=== PATIENT | female | born 1995 | race Caucasian/White ===

== ENCOUNTER → 2016-11-05 07:54 | Day surgery (SDC) | payer OTHER, MEDICAID ==
[~2016-11-05 07:54] MED LIST: Buffered Lidocaine 1% SYR 3ML* 3 ML/SYR SYRINGE INTRADERM ONE; Bupivacaine 0.5% W/EPI SDV* 30 ML VIAL ONE; Dexamethasone IV* 4 MG/ML 1 ML (4 MG) ONE; Famotidine IV* 10 MG/ML 2 ML (20 mg) IV ONE; Famotidine IV* 10 MG/ML 2 ML (20 mg) ONE; KETAMINE HCL* 50 MG/ML 10 ML VIAL ONE; Ketorolac INJ* 30 MG/ML 1 ML VIAL ONE; Lidocaine 1% INJ* 10 MG/ML 30 ML SDV ONE; Lidocaine 2% PF * 5 ML VIAL ONE; Midazolam* 1 MG/ML 5 ML VIAL (5 MG) ONE; Morphine INJ* 2 MG/ML 1 ML CARPUJECT IV PRN; Ondansetron INJ* 2 MG/ML VIAL ONE; PROCHLORPERAZINE INJ 5 MG/ML 2 ML VIAL IV PRN; PROCHLORPERAZINE INJ 5 MG/ML 2 ML VIAL ONE; Propofol* 10 MG/ML 20 ML BTL IV PUSH ONE; Vancomycin(*) 1,000 MG in NS 0.9% 250 ML* 250 ML IVPB ONE; fentaNYL* 50 MCG/ML 2 ML VIAL (100 MCG VIAL) IV PRN; fentaNYL* 50 MCG/ML 2 ML VIAL (100 MCG VIAL) ONE; oxyCODONE/Acetamin 5/325 MG* TAB PO PRN
[2016-11-05 08:40] LABS: Manual Entry Verification AS; UR Preg Internal Control QC Line Present; UR Preg Kit Lot# 6060104
[2016-11-05 12:07] VITALS: BP 116/60
--- NOTE | 2016-11-20 16:54 | OP ---
DATE OF PROCEDURE: 11/05/16 - SDS DATE OF : 93 SURGEON: Jason Garsia MD DESIGN ENGINEER PRODUCTS: Megha Ackerman NP ANESTHESIOLOGIST: Dr. Krishna. ANESTHESIA: Local MAC anesthesia. PRE-OP DIAGNOSIS: Umbilical hernia. POST-OP DIAGNOSIS: Umbilical hernia. OPERATIVE PROCEDURE: Open umbilical hernia repair. ESTIMATED BLOOD LOSS: Minimal. SPECIMEN: None. FLUIDS: Minimal crystalloid fluid given. DRAINS: None. DESCRIPTION OF PROCEDURE: The patient was identified in the preoperative area and marked, brought to the OR and placed on the operating table in the supine position. Preoperative antibiotics were given. Sequential devices were placed in bilateral lower extremities. Gentle sedation was given. The patient's abdomen was prepped and draped in a standard surgical fashion and a time-out was performed. An infraumbilical incision was made. This was deepened down to the anterior fascia inferiorly. A window was made around the umbilical skin. A [place] was placed around this and sharp dissection was utilized to free the umbilical skin from the defect. Defect appeared approximately 1 cm and the decision was made for primary closure. A #1 Surgipro sutures were utilized and a [id number] suture was utilized to close the defect. Irrigation was used and the umbilical skin was then tacked down with 2-0 Polysorb followed by closure of the incision with 3-0 Polysorb followed by 4-0 Monocryl subcuticular sutures. Steri-Strips and sterile dressing were applied. The patient tolerated the procedure well. He was awoken up in the OR and transferred to the PACU in stable condition. CC: [facility]; Nica Bravo NP* [id number]/[facility] #: [id number] MTDD
== END | disposition home or self-care (01) ==
LOC: OR 07:54
PROVIDERS: ATTEND Surgery
DX: K42.9 Umbilical hernia without obstruction or gangrene (principal); J45.909 Unspecified asthma, uncomplicated; F31.9 Bipolar disorder, unspecified; Z87.891 Personal history of nicotine dependence
CPT/HCPCS: 81025; J0780; J1100; J1885; J2250; J2405; J2704; J3010; J3370

== ENCOUNTER 2017-01-30 17:31 | Emergency (ER) | payer OTHER, MEDICAID ==
[2017-01-30 17:38] VITALS: BP 118/79
[2017-01-30] MEDS ORDERED: Ketorolac INJ* 60 MG/2 ML VIAL IM ONE (20:20)
[2017-01-30 20:58] LABS: Hematocrit 41 % (35-47); Hemoglobin 14.1 g/dl (12.0-16.0); Mean Corpuscular HGB Conc 35 g/dl (31-36); Mean Corpuscular Hemoglobin 28 pg (27-31); Mean Corpuscular Volume 82 fL (80-97); Mean Platelet Volume 10 um3 (7.4-10.4); Red Blood Count 4.99 10^6/ul (4.0-5.4); Red Cell Distribution Width 14 % (10.5-15); White Blood Count 10.7 10^3/ul (3.5-10.8)
[2017-01-30 21:02] LABS: Urine Bacteria Absent (Absent); Urine Bilirubin Negative (Negative); Urine Glucose Negative (Negative); Urine Nitrite Negative (Negative)
[2017-01-30 21:21] LABS: ALT 17 U/L (7-52); AST 16 U/L (13-39); Albumin 4.1 g/dL (3.2-5.2); Alkaline Phosphatase 65 U/L (34-104); Anion Gap 8 mmol/L (2-11); BUN/Creatinine Ratio 11.7 (8-20); Blood Urea Nitrogen 9 mg/dL (6-24); C Reactive Protein 145.32 mg/L (< 5.00); CO2 Carbon Dioxide 22 mmol/L (22-32); Calcium 8.8 mg/dL (8.6-10.3); Chloride 106 mmol/L (101-111); EGFR African American 119.5 (>60); EGFR Non-African American 92.9 (>60); Glucose 123 mg/dL (70-100); Sodium 136 mmol/L (133-145); Total Protein 7.1 g/dL (6.4-8.9)
--- NOTE | 2017-01-30 21:41 | RAD ---
Indication: Right adnexal pain. Real-time sonography of the pelvis was performed utilizing endovaginal technique. The uterus measures 7.6 x 4.0 x 4.8 cm. Endometrial echo measures 4.4 mm. Right ovary measures 3.2 x 2.2 x 3.1 cm. Left ovary measures 3.7 x 1.8 x 2.3 cm. No adnexal masses are noted. IMPRESSION: No adnexal masses are identified.
[2017-01-30] MEDS ORDERED: Sulfamethox/Trimethoprim DS 800/160* TAB PO ONE (22:01)
[2017-01-30] MEDS ORDERED: Potassium Chlor TAB* 20 MEQ TAB.ER PO ONE (22:05)
--- NOTE | 2017-01-31 01:33 | ED ---
Nick Cuadra Alok, scribed for Roland Barboza MD on 01/30/17 at 2211 . HPI Febrile Illness - HPI Summary HPI Summary: 21F presents to the ED for a sore throat, nasal congestion, occipital ALEXANDER, and generalized myalgia since yesterday. Pt states her pain is worst behind her ears at a 8/10. Pt has tried advil, tylenol, and ibuprofen for relief with no effect. Pt also notes suprapubic abd pain and dypnea due to myaliga. Pt denies cough or rhinorrhea. Pt denies hematuria, dysuria, or changes in urinary frequency. Pt notes h/o migraine and previous migraine medication she no longer takes. Pt denies flu shot taken this year. Pt denies h/o ovarian cysts. Pt takes Neproxin. Pt takes Depo Shot control and does not get regular mensural periods. Pt takes prescription Neproxin. Pt notes allergies to clindamycin, amoxicillin, and penicillin. - History of Current Complaint Chief Complaint: EDUpperRespComplaint Hx Obtained From: Patient Onset/Duration: Started Days Ago, Atraumatic, Still Present Timing: Constant Initial Severity: Moderate Current Severity: Moderate Pain Intensity: 8 Pain Scale Used: 0-10 Numeric Alleviating Factors: Nothing Associated Signs and Symptoms: Headache, Myalgia, Sore Throat, Other: - nasal congestion - Allergy/Home Medications Allergies/Adverse Reactions: Allergies Allergy/AdvReac Type Severity Reaction Status Date / Time Amoxicillin Allergy Severe Hives Verified 11/05/16 08:32 Lamotrigine [From Lamictal] Allergy Intermediate Rash Verified 11/05/16 08:32 Adhesive Tape [Paper Tape] Allergy Rash And Verified 11/05/16 08:32 Itching Doxycycline Allergy ITCHY HIVES Verified 11/05/16 08:32 Penicillins Allergy Hives Verified 11/05/16 08:32 Trazodone AdvReac Severe Agitation Verified 11/05/16 08:32 ANTIBIOTIC THAT STARTS WITH C Allergy Severe Hives Uncoded 11/05/16 08:32 PMH/Surg Hx/FS Hx/Imm Hx Endocrine/Hematology History: Denies: Hx Diabetes, Hx Thyroid Disease Cardiovascular History: Denies: Hx Congestive Heart Failure, Hx Hypertension Respiratory History: Reports: Hx Asthma - INHALERS Denies: Hx Chronic Obstructive Pulmonary Disease (COPD) GI History: Reports: Hx Gastroesophageal Reflux Disease - CONTROL WITH MEDS Denies: Hx Ulcer History: Reports: Other Problems/Disorders - FREQUENT YEAST INFECTION - NONE NOW Denies: Hx Renal Disease Sensory History: Denies: Hx Contacts or Glasses, Hx Hearing Aid Opthamlomology History: Denies: Hx Contacts or Glasses Neurological History: Reports: Hx Migraine - 4 TIMES A DAY, Other Neuro Impairments/Disorders - MOOD SWINGS, ADHD, INSOMNIA Psychiatric History: Reports: Hx Anxiety, Hx Depression, Other Psychiatric Issues/Disorders - ADHD,PTSD - Surgical History Surgery Procedure, Year, and Place: 01/2000 BILATERAL MYRINGOTOMY WITH [place] [facility] [place]. [place]2000 ADENOIDECTOMY AND [place]IL[place]OMY, [facility] [place] Hx Anesthesia Reactions: Yes - TOOK LONGER TO WAKE UP Infectious Disease History: No Infectious Disease History: Denies: Hx Hepatitis, Hx Human Immunodeficiency Virus (HIV), Traveled Outside the in Last 30 Days - Family History Known Family History: Positive: Cardiac Disease, Hypertension - Social History Occupation: Unemployed Lives: With Family Alcohol Use: None Hx Substance Use: No Substance Use Type: Reports: None Hx Tobacco Use: Yes Smoking Status (MU): Former Smoker Type: Cigarettes Amount Used/How Often: 1 PPD Length of Time of Smoking/Using Tobacco: 6 YEARS Have You Smoked in the Last Year: No Review of Systems Negative: Fever, Chills Negative: Erythema Positive: Sore Throat, Other - nasal congestion. Negative: Nasal Discharge Negative: Shortness Of Breath, Cough Positive: Abdominal Pain. Negative: Vomiting, Nausea Negative: dysuria, hematuria Positive: Myalgia. Negative: Edema Negative: Rash Neurological: Other - Negative: Dizziness Positive: Headache All Other Systems Reviewed And Are Negative: Yes Physical Exam - Summary Physical Exam Summary: Constitutional: Well-developed, Well-nourished, Alert. (-) Distressed Skin: Warm, Dry HENT: Normocephalic; Atraumatic Eyes: Conjunctiva normal Neck: Musculoskeletal ROM normal neck. (-) JVD, (-) Stridor, (-) Tracheal deviation Cardio: Rhythm regular, rate normal, Heart sounds normal; Intact distal pulses; The pedal pulses are 2+ and symmetric. Radial pulses are 2+ and symmetric. (-) Murmur Pulmonary/Chest wall: Effort normal. (-) Respiratory distress, (-) Wheezes, (-) Rales Abd: Soft, suprapubic tenderness Musculoskeletal: Bilateral CVA tenderness Lymph: (-) Cervical adenopathy Neuro: Alert, Oriented x3 Psych: Mood and affect Normal Triage Information Reviewed: Yes Vital Signs On Initial Exam: Initial Vitals Temp Pulse Resp BP Pulse Ox 98.5 F 103 20 118/79 98 01/30/17 17:37 01/30/17 17:37 01/30/17 17:37 01/30/17 17:37 01/30/17 17:37 Vital Signs Reviewed: Yes - Quinn Coma Scale Coma Scale Total: 15 Diagnostics - Vital Signs Vital Signs Temp Pulse Resp BP Pulse Ox 01/30/17 17:38 98.5 F 101 20 118/79 100 01/30/17 17:37 98.5 F 103 20 118/79 98 - Laboratory Lab Results: Lab Results 01/30/17 01/30/17 01/30/17 Range/Units 20:50 20:50 20:50 WBC 10.7 (3.5-10.8) 10^3/ul RBC 4.99 (4.0-5.4) 10^6/ul Hgb 14.1 (12.0-16.0) g/dl Hct 41 (35-47) % MCV 82 (80-97) fL MCH 28 (27-31) pg MCHC 35 (31-36) g/dl RDW 14 (10.5-15) % Plt Count 144 L (150-450) 10^3/ul MPV 10 (7.4-10.4) um3 Sodium 136 (133-145) mmol/L Potassium 3.0 L (3.5-5.0) mmol/L Chloride 106 (101-111) mmol/L Carbon Dioxide 22 (22-32) mmol/L Anion Gap 8 (2-11) mmol/L BUN 9 (6-24) mg/dL Creatinine 0.77 (0.51-0.95) mg/dL Est GFR ( Amer) 119.5 (>60) Est GFR (Non-Af Amer) 92.9 (>60) BUN/Creatinine Ratio 11.7 (8-20) Glucose 123 H (70-100) mg/dL Calcium 8.8 (8.6-10.3) mg/dL Total Bilirubin 0.70 (0.2-1.0) mg/dL AST 16 (13-39) U/L ALT 17 (7-52) U/L Alkaline Phosphatase 65 (34-104) U/L C-Reactive Protein 145.32 H (< 5.00) mg/L Total Protein 7.1 (6.4-8.9) g/dL Albumin 4.1 (3.2-5.2) g/dL Globulin 3.0 (2-4) g/dL Albumin/Globulin Ratio 1.4 (1-3) Beta HCG, Quant < 0.60 mIU/mL Urine Color Yellow Urine Appearance Clear Urine pH 6.0 (5-9) Ur Specific [place] 1.026 (1.010-1.030) Urine Protein 1+(30 mg/dl) H (Negative) Urine Ketones Trace H (Negative) Urine Blood Negative (Negative) Urine Nitrate Negative (Negative) Urine Bilirubin Negative (Negative) Urine Urobilinogen Negative (Negative) Ur Leukocyte Esterase 3+ H (Negative) Urine WBC (Auto) 2+(11-20/hpf) H (Absent) Urine RBC (Auto) 3+(>10/hpf) H (Absent) Ur Squamous Epith Cells Present H (Absent) Urine Bacteria Absent (Absent) Urine Glucose Negative (Negative) Result Diagrams: 01/30/17 20:50 01/30/17 20:50 Lab Statement: Any lab studies that have been ordered have been reviewed, and results considered in the medical decision making process. - Additional Comments Diagnostic Additional Comments: Transvaginal US - IMPRESSION: No adnexal masses are identified. Course/Dx - Course Course Of Treatment: [facility] pharmacy in [place] was not in system. She was transported to [place] with her boyfriend - Diagnoses Provider Diagnoses: Hypokalemia, CVA tenderness, Suprapubic tenderness Discharge - Discharge Plan Condition: Stable Disposition: HOME Prescriptions: Sulfamethox/Trimethoprim DS* [Bactrim DS 800/160 TAB*] 1 tab PO BID #28 tab traMADol TAB* [Ultram*] 25 mg PO Q6HR PRN #12 tab MDD 4 PRN Reason: Pain - Moderate To Severe Patient Education Materials: Hypokalemia (ED) Referrals: Nica Bravo NP [Primary Care Provider] - Additional Instructions: We recommend eating bananas. Your script can be picked up at [[facility] [address], [place] [address]. Please show them the papers attached.] The documentation as recorded by the jaquiibNick frederick Alok accurately reflects the service I personally performed and the decisions made by me, Roland Barboza MD.
== END 2017-01-30 22:30 | disposition home or self-care (01) ==
LOC: ED 17:31
DX: J02.9 Acute pharyngitis, unspecified (principal); R10.819 Abdominal tenderness, unspecified site; R10.9 Unspecified abdominal pain; R09.81 Nasal congestion; R51 Headache; M79.1 Myalgia; Z87.891 Personal history of nicotine dependence; E87.6 Hypokalemia
CPT/HCPCS: 36415; 76830; 80053; 81003; 81015; 84702; 85027; 86140; 87086; 96372; 99282; A9270-GY; J1885

== ENCOUNTER 2017-02-11 13:23 | Emergency (ER) | payer OTHER, MEDICAID ==
[2017-02-11 15:22] VITALS: BP 124/67
--- NOTE | 2017-02-11 16:15 | UC ---
Throat Pain/Nasal Amilcar HPI - HPI Summary HPI Summary: 21 female presents with complaints of ear pain, coughing, nasal congestion, sinus congestion and sore throat that has been ongoing for the past 4 days. Patient was seen at her PCP yesterday who diagnosed her with rhinosinusitis. She was given naproxen that she was only able to take for 1 day until her throat was so sore. Was tested for strep yesterday and it was negative. States she has been having fever/chill from 99-102F over the past 4 days. She has also had loss of appetite and unable to eat/drink a lot due to the sore throat. Has also tried Mucinex without relief. Denies PMHx besides asthma. Patient gets sinus infections often. - History of Current Complaint Chief Complaint: UCRespiratory Stated Complaint: CONGESTED,EAR PAIN,CANNOT EAT Time Seen by Provider: 02/11/17 15:54 Hx Obtained From: Patient Hx Last Menstrual Period: 7 mo ago, depo shot ?: No Onset/Duration: Sudden Onset, Lasting Days, Worse Since Severity: Moderate Pain Intensity: 9 Pain Scale Used: 0-10 Numeric Cough: Nonproductive Associated Signs & Symptoms: Positive: Dysphagia, Sinus Discomfort, Nasal Discharge, Fever - Allergies/Home Medications Allergies/Adverse Reactions: Allergies Allergy/AdvReac Type Severity Reaction Status Date / Time Amoxicillin Allergy Severe Hives Verified 02/11/17 15:15 Lamotrigine [From Lamictal] Allergy Intermediate Rash Verified 02/11/17 15:15 Adhesive Tape [Paper Tape] Allergy Rash And Verified 02/11/17 15:15 Itching Doxycycline Allergy ITCHY HIVES Verified 02/11/17 15:15 Penicillins Allergy Hives Verified 02/11/17 15:15 Trazodone AdvReac Severe Agitation Verified 02/11/17 15:15 ANTIBIOTIC THAT STARTS WITH C Allergy Severe Hives Uncoded 02/11/17 15:15 PMH/Surg Hx/FS Hx/Imm Hx Respiratory History: Asthma - Surgical History Surgical History: Yes Surgery Procedure, Year, and Place: 01/2000 BILATERAL MYRINGOTOMY WITH TUBE INSERTION, [facility] [place]. 04/2000 ADENOIDECTOMY AND TONSILLECTOMY, [facility] [place]. umbilical hernia repair - Family History Known Family History: Positive: Cardiac Disease, Hypertension - Social History Alcohol Use: None Substance Use Type: None Smoking Status (MU): Former Smoker Type: Cigarettes Amount Used/How Often: 1 PPD Length of Time of Smoking/Using Tobacco: 6 YEARS Have You Smoked in the Last Year: No When Did the Patient Quit Smoking/Using Tobacco: 2011 - Immunization History Vaccination Up to Date: Yes Review of Systems Constitutional: Fever, Chills, Other - "unable to sleep" Skin: Negative Eyes: Negative ENT: Sore Throat, Ear Ache, Nasal Discharge Respiratory: Cough Cardiovascular: Negative Gastrointestinal: Other - loss of appetite Motor: Negative Musculoskeletal: Myalgia Neurological: Headache All Other Systems Reviewed And Are Negative: Yes Physical Exam Triage Information Reviewed: Yes Appearance: No Pain Distress, Well-Nourished, Ill-Appearing - tearful laying on stretcher covered in blanket. sounds congested Vital Signs: Initial Vital Signs Temp 99.2 F 02/11/17 15:17 Pulse 89 02/11/17 15:17 Resp 16 02/11/17 15:17 BP 124/67 02/11/17 15:17 Pulse Ox 97 02/11/17 15:17 Vital Signs Reviewed: Yes Eyes: Positive: Conjunctiva Clear - erythematous from crying ENT: Positive: Hearing grossly normal, Pharyngeal erythema, Nasal congestion, Nasal drainage, TMs normal, Other: - no sign of peritonsillar abscess. Negative : TM bulging, TM dull, TM red, Tonsillar swelling, Tonsillar exudate, Trismus, Muffled/hoarse voice Dental: Positive: Percussion Tenderness @ - maxillary and frontal b/l, Cervical Lymphadenopathy Neck exam: Normal Neck: Positive: Supple, Nontender Respiratory: Positive: Chest non-tender, Lungs clear, Normal breath sounds, No respiratory distress, No accessory muscle use. Negative: Respiratory distress, Decreased breath sounds, Crackles, Rhonchi, Stridor, Wheezing Cardiovascular: Positive: RRR, No Murmur, Pulses Normal Abdomen Description: Positive: Nontender, Soft. Negative: CVA Tenderness (R), CVA Tenderness (L), Distended, Guarding, Peritoneal Signs Bowel Sounds: Positive: Present Musculoskeletal: Positive: Strength Intact, ROM Intact Neurological: Positive: Alert Skin Exam: Normal Throat Pain/Nasal Course/Dx - Course Course Of Treatment: patient educated on viral versus bacterial infections. educated on mono. appears to be suffering from possible acute sinusitis. due to second visit and PE findings will be treated for sinusitis with a z pack and flonase. also recommended to continue naproxen, mucinex and use chloraseptic spray to help soothe throat. Tested for strep yesterday and was negative. hot shower, salt water gargles. follow up pcp, told to get tested for mono at next pcp visit, patient deferred testing at this time. aware of worsening signs and symptoms. - Differential Dx/Diagnosis Differential Diagnosis/HQI/PQRI: Influenza, Mononucleosis, Otitis Media, Pharyngitis, Sinusitis, Tonsillitis, URI Provider Diagnoses: acute sinusitis Discharge - Discharge Plan Condition: Stable Disposition: HOME Prescriptions: Azithromycin TAB* [Zithromax TAB (Z-ZAID) 250 mg #6 tabs] 2 tab PO .TODAY, THEN 1 DAILY #1 zaid Fluticasone NASAL SPRAY 50MCG* [Flonase NASAL SPRAY 50MCG*] 2 spray BOTH NARES DAILY #1 btl Patient Education Materials: Sinusitis (ED) Referrals: Nica Bravo [facility] [Primary Care Provider] - Additional Instructions: Take prescribed antibiotic as directed until entire dose is finished. Use nasal spray at bedtime. Recommend using chloraseptic spray to help numb throat that is sold over the counter. Continue taking naproxen for headache and ache and mucinex as needed. Take hot showers and use humidifier in bedroom at night if able. Gargle with salt water a few times daily. Drink plenty of fluids and get plenty of rest. Xyzal is a good over the counter medication to help keep congestion under control and take daily when experiencing symptoms. Follow up with PCP. If symptoms worsen or do not improve please seek medical attention.
== END 2017-02-11 16:20 | disposition home or self-care (01) ==
LOC: UCEAST 13:23
DX: J01.90 Acute sinusitis, unspecified (principal); F17.210 Nicotine dependence, cigarettes, uncomplicated
CPT/HCPCS: 99212; G0463

== ENCOUNTER 2017-12-07 22:32 | Emergency (ER) | payer OTHER, MEDICAID ==
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
--- OUTSIDE RECORDS SUMMARY | 2017-12-07 22:55 | XMS REPORT ---
:1993 External Reference #:[id number] Author Organization [facility] Address [address], [address] [place] [address] Phone [phone] Care Team Providers Name Role Phone Anabel Veliz CNM Care Team Information E Commerce Manager Unavailable Nica Bravo NP Primary Care Physician Unavailable Payers Type Date Identification Numbers Payment Provider Subscriber Commercial Policy Number: [id number] Jeffrey Mayeriane Yogi PayID: [id number] [address] [place] [address] Medicaid Policy Number: [id number] Medicaid Heidi Barrera Group Name: 1 2 [address] PayID: [id number] [place] [address] Problems Description No Information Family History Date [...] Patient is currently sexually active Age 1st [place] 14 Years Old # Partners in a [...] kg/m2 BSA (Body Surface Area) 1.89 m2 [place] body weight in kilograms 57 11/05/2017 BP Systolic 102 mmHg BP Diastolic 62 mmHg Height 65 inches 5'5" Weight 178.25 lb BMI (Body Mass Index) 29.7 kg/m2 BSA (Body Surface Area) 1.88 m2 [place] body weight in kilograms 57 10/27/2017 BP Systolic 98 mmHg BP Diastolic 54 mmHg Height 65 inches 5'5" Weight 176.50 lb BMI (Body Mass Index) 29.4 kg/m2 BSA (Body Surface Area) 1.88 m2 [place] body weight in kilograms 57 08/31/2017 BP Systolic 108 mmHg BP Diastolic 76 mmHg Height 65 inches 5'5" Weight 160.38 lb BMI (Body Mass Index) 26.7 kg/m2 BSA (Body Surface Area) 1.80 m2 [place] body weight in kilograms 57 Last Menstrual Period [id number] Results Test Date Test Result H/L Range [...] 4 Lymph # 1.27 K/uL 1.0-4.0 4 [place] # 0.78 K/uL 0.3-0.9 4 Eos # [...] Treponema Antibody Negative Negative 4, 10 finding [place] Slide Review DIFF ORDERED 4 Differential-WBC Confirm [...] 08/31/2017 Treponema Antibody Negative Negative 12 finding [place] CBS W/Automated 08/31/2017 White Blood Count 7.9 [...] 12 Lymph % 21.2 % 20.0-42.0 12 [place] % 8.4 % 4.3-13.2 12 Eo% 2.8 % 0.0-6.6 12 Bas% 0.3 % 0.0-1.1 12 Neut# 5.30 K/uL 1.8-7.0 12 Lymph # 1.67 K/uL 1.0-4.0 12 [place] # 0.66 K/uL 0.3-0.9 12 Eos # 0.22 K/uL 0.0-0.5 12 Baso # 0.02 K/uL 0.0-0.1 12 Genital Culture W/ Gram 08/31/2017 Gram Stain GRAM STAIN INDIC <SEE 12, 14 Stain NOTE> Gram Stain MODERATE GR POS. <SEE NOTE> 12, 15 Gram Stain FEW WHITE BLOOD <SEE NOTE> 12, 16 Genital Culture GENITAL EDITH 12 Cystic Fibrosis,Dna 08/31/2017 Cystic Fibrosis [id number] 12, 17 Analysis Chlamydia/GC [place] 08/31/2017 Chlamydia [...] 8 NO SPECIMEN RECEIVED 9 Performed at: [address] [id number] Steak Tenderizer Machine: Keena Prabhakar MD, Phone: [phone] 10 Performed at: [address] [id number] Steak Tenderizer Machine: Wilver Groves MD, Phone: [phone] 11 LARGE PLATELETS PRESENT. 12 Z34.82 13 Performed at: [address] [id number] Steak Tenderizer Machine: Kenea Prabhakar MD, Phone: [phone] 14 GRAM STAIN INDICATES NORMAL GENITAL EDITH [...] 0.90 - 0.99 Immune >0.99 Performed at: [address] [id number] Steak Tenderizer Machine: Keena Prabhakar MD, Phone: [phone] Performed at: [address] [id number] Steak Tenderizer Machine: Wilver Groves MD, Phone: [phone] 20 INFCE Result Units: s/co ratio Negative: < 0.8 Indeterminate: 0.8 - 0.9 Positive: > 0.9 The CDC recommends that a positive HCV antibody result be followed up with a HCV Nucleic Acid Amplification test (121021). 21 Environmental Exposure: WHO Recommendation <20 Occupational Exposure: OSHA Lead Std 40 MATA 30 Detection Limit=1 Performed at: [address] [id number] Steak Tenderizer Machine: Keena Prabhakar MD, Phone: [phone] 22 10,000 - 50,000 CFU/mL 23 URINE [...] Procedures Description No Information Plan of Care Future Appointment(s):12/03/2017 2:30 pm - Anabel Veliz CNM at [facility]
--- OUTSIDE RECORDS SUMMARY | 2017-12-07 22:56 | XMS REPORT ---
:1993 External Reference #:[id number] Author Organization [facility] Address [address], [address] [place] [address] Phone [phone] Care Team Providers Name Role Phone Anabel Veliz CNM Care Team Information Shelter Monitor Unavailable Nica Bravo NP Primary Care Physician Unavailable Payers Type Date Identification Numbers Payment Provider Subscriber Commercial Policy Number: [id number] Jeffrey Mayeriane Yogi PayID: [id number] [address] [place] [address] Medicaid Policy Number: [id number] Medicaid Heidi Barrera Group Name: 1 2 [address] PayID: [id number] [place] [address] Problems Description No Information Family History Date [...] Patient is currently sexually active Age 1st [place] 14 Years Old # Partners in a [...] kg/m2 BSA (Body Surface Area) 1.89 m2 [place] body weight in kilograms 57 11/05/2017 BP Systolic 102 mmHg BP Diastolic 62 mmHg Height 65 inches 5'5" Weight 178.25 lb BMI (Body Mass Index) 29.7 kg/m2 BSA (Body Surface Area) 1.88 m2 [place] body weight in kilograms 57 10/27/2017 BP Systolic 98 mmHg BP Diastolic 54 mmHg Height 65 inches 5'5" Weight 176.50 lb BMI (Body Mass Index) 29.4 kg/m2 BSA (Body Surface Area) 1.88 m2 [place] body weight in kilograms 57 08/31/2017 BP Systolic 108 mmHg BP Diastolic 76 mmHg Height 65 inches 5'5" Weight 160.38 lb BMI (Body Mass Index) 26.7 kg/m2 BSA (Body Surface Area) 1.80 m2 [place] body weight in kilograms 57 Last Menstrual Period [id number] Results Test Date Test Result H/L Range Note CBS W/Automated Diff 11/05/2017 White Blood Count 7.2 K/uL 3.1-10.7 1 Red Blood Count 4.36 M/uL 3.90-5.40 1 Hemoglobin 12.9 gm/dL 11.6-15.8 1 Hematocrit 37.2 % 36.0-46.1 1 Mean Cell Volume 85.3 fl 80.9-99.0 1 Mean Corpuscular HGB 29.6 pg 25.9-32.7 1 Mean Corpuscular HGB Conc 34.7 g/dL High 30.8-34.3 1 Platelet Count 166 K/uL 155-360 1 Red Cell Distri Width SD 42.9 fl 3-47 1 Red Cell Distri Width %CV 14.1 % 11.7-14.4 1 Mean Platelet Volume 13.0 fL High 8.9-12.4 1, 2 Neut# 4.93 K/uL 1.8-7.0 1 Lymph # 1.27 K/uL 1.0-4.0 1 [place] # 0.78 K/uL 0.3-0.9 1 Eos # 0.20 K/uL 0.0-0.5 1 Baso # 0.02 K/uL 0.0-0.1 1 Glucose,1 HR Post Glucola 11/05/2017 1 HR Glucose,Post Glucola 91 mg/dL - 138 1, 3 1 Hour Urine Glucose NO SPECIMEN RECE <SEE NOTE> % Negative 1, 4 1 Hour Urine Ketone NO SPECIMEN RECE <SEE NOTE> Negative 1, 5 HIV Screen 4TH Gen 11/05/2017 HIV Screen 4th Non Reactive Non Reactive 1 , 6 Reflex Generation wRfx Laboratory test 11/05/2017 Treponema Antibody Negative Negative 1, 7 finding [place] Slide Review DIFF ORDERED 1 Differential-WBC Confirm 11/05/2017 Total Cells Counted 100 #CELLS 1 Metamyelocyte% 1 % 0% 1 Band% 6 % 0-8 1 Neutrophils% 59 % 33-73 1 Lymph% 17 % Low 20-42 1 Atypical Lymph% 1 % 0-7 1 Monocyte% 11 % High 0-10 1 Eosinophil% 4 % 0-5 1 Basophil% 1 % 0-2 1 Platelet Estimate NORMAL 1 Toxic Granulation 0-1+ 1 Differential Comment LARGE PLATELETS <SEE NOTE> 1, 8 HIV Screen 4TH Gen 08/31/2017 HIV Screen 4th Non Reactive Non Reactive 9 , 10 Reflex Generation wRfx Laboratory test 08/31/2017 Treponema Antibody Negative Negative 9 finding [place] CBS W/Automated Diff 08/31/2017 White Blood Count 7.9 K/uL 3.1-10.7 9 Red Blood Count 4.89 M/uL 3.90-5.40 9 Hemoglobin 14.5 gm/dL 11.6-15.8 9 Hematocrit 41.6 % 36.0-46.1 9 Mean Cell Volume 85.1 fl 80.9-99.0 9 Mean Corpuscular HGB 29.7 pg 25.9-32.7 9 Mean Corpuscular HGB Conc 34.9 g/dL High 30.8-34.3 9 Platelet Count 172 K/uL 155-360 9 Red Cell Distri Width SD 44.2 fl 3-47 9 Red Cell Distri Width %CV 14.6 % High 11.7-14.4 9 Mean Platelet Volume 12.9 fL High 8.9-12.4 9 Neut% 67.3 % 40.4-72.8 9 Lymph % 21.2 % 20.0-42.0 9 [place] % 8.4 % 4.3-13.2 9 Eo% 2.8 % 0.0-6.6 9 Bas% 0.3 % 0.0-1.1 9 Neut# 5.30 K/uL 1.8-7.0 9 Lymph # 1.67 K/uL 1.0-4.0 9 [place] # 0.66 K/uL 0.3-0.9 9 Eos # 0.22 K/uL 0.0-0.5 9 Baso # 0.02 K/uL 0.0-0.1 9 Genital Culture W/ Gram 08/31/2017 Gram Stain GRAM STAIN INDIC <SEE 9, 11 Stain NOTE> Gram Stain MODERATE GR POS. <SEE NOTE> 9, 12 Gram Stain FEW WHITE BLOOD <SEE NOTE> 9, 13 Genital Culture GENITAL EDITH 9 Cystic Fibrosis,Dna 08/31/2017 Cystic Fibrosis [id number] 9, 14 Analysis Chlamydia/GC [place] 08/31/2017 Chlamydia Negative Negative 9 Trachomatis, Lenora Neisseria Gonorrhoeae, [place] Negative Negative 9 Please note: (SEE NOTE) 9, 15 Laboratory test 08/31/2017 Rubella IgG 3.99 index Immune >0.99 9, 16 finding Antibody Laboratory test 08/31/2017 Hepatitis B Surface Negative Negative 9 finding Antigen Hepatitis C Antibody < 0.1 s/corat 0.0-0.9 9, 17 Lead,Blood (Adult) <1 g/dL 0-19 , 18 Type And Screen 08/31/2017 Patient Blood Type O POS 9 Antibody Screen Negative Negative 9 Urine Culture 08/31/2017 Urine Culture URETHRAL EDITH 9 Quantity 10,000 - 50,000 <SEE NOTE> , 19 Drugs Of Abuse-Urine Screen 7 08/31/2017 Amphetamines (Urine) Negative 9 Barbiturates (Urine) Negative 9 Benzodiazepines (Urine) Negative 9 Cannabinoids (Urine) Negative 9 Cocaine Metabolite (Urine) Negative 9 Methadone (Urine) Negative 9 Opiates (Urine) Negative 9 Urine Cutoffs * 9, 20 1 Z3A.28 2 11/05/17 1642: NEUT% previously reported as: 68.5 % Amended result called to: [] - 11/05/17 at 1642 11/05/17 1642: LYMPH % previously reported as: 17.6 L % Amended result called to: [] - 11/05/17 at 1642 11/05/17 1642: MONO % previously reported as: 10.8 % Amended result called to: [] - 11/05/17 at 1642 11/05/17 1642: EO% previously reported as: 2.8 % Amended result called to: [] - 11/05/17 at 1642 11/05/17 1642: BAS% previously reported as: 0.3 % Amended result called to: [] - 11/05/17 at 1642 3 POST GLUCOLA 4 NO SPECIMEN RECEIVED 5 NO SPECIMEN RECEIVED 6 Performed at: - [facility] [address] [id number] Medicaid Collection Specialist: Keena Prabhakar MD, Phone: [phone] 7 Performed at: - [facility] [address] [id number] Medicaid Collection Specialist: Wilver Groves MD, Phone: [phone] 8 LARGE PLATELETS PRESENT. 9 Z34.82 10 Performed at: [address] [id number] Medicaid Collection Specialist: Keena Prabhakar MD, Phone: [phone] 11 GRAM STAIN INDICATES NORMAL GENITAL EDITH 12 MODERATE GR POS. BACILLI SUGGESTIVE OF LACTOBACILLUS SP. 13 FEW WHITE BLOOD CELLS 14 FORWARDED TO REFERENCE LABORATORY. 15 . A negative result for either C. trachomatis and/or N. gonorrhoeae does not preclued an infection because results are dependent on adequate specimen collection, absence of inhibitors, and sufficient DNA to be detected. 16 Non-immune <0.90 Equivocal 0.90 - 0.99 Immune >0.99 Performed at: [address] [id number] Medicaid Collection Specialist: Keena Prabhakar MD, Phone: [phone] Performed at: [address] [id number] Medicaid Collection Specialist: Wilver Groves MD, Phone: [phone] 17 INFCE Result Units: s/co ratio Negative: < 0.8 Indeterminate: 0.8 - 0.9 Positive: > 0.9 The CDC recommends that a positive HCV antibody result be followed up with a HCV Nucleic Acid Amplification test (574487). 18 Environmental Exposure: WHO Recommendation <20 Occupational Exposure: OSHA Lead Std 40 MATA 30 Detection Limit=1 Performed at: [address] [id number] Medicaid Collection Specialist: Keena Prabhakar MD, Phone: [phone] 19 10,000 - 50,000 CFU/mL 20 URINE SPECIMENS ARE SCREENED AT THE LISTED [...] 2:30 pm - Anabel Veliz CNM at [facility]
[2017-12-07] MEDS ORDERED: Metoclopramide IV* 5 MG/ML 2 ML VIAL IV ONE (22:57)
[2017-12-07] MEDS ORDERED: NS 0.9% 1000 ML* 1,000 ML IV ONE (22:57)
[2017-12-07 23:24] LABS: ABS Basophils 0 10^3/ul (0-0.2); ABS Eosinophils 0.1 10^3/ul (0-0.6); ABS Lymphocytes 0.5 10^3/ul (1.0-4.8); ABS Monocytes 0.9 10^3/ul (0-0.8); ABS Nucleated RBC 0 10^3/ul; Eosinophil % 0.5 % (0-6); Hematocrit 42 % (35-47); Hemoglobin 14.2 g/dl (12.0-16.0); Lymphocyte % 4.1 % (25-47); Mean Corpuscular HGB Conc 34 g/dl (31-36); Mean Corpuscular Hemoglobin 29 pg (27-31); Mean Corpuscular Volume 85 fL (80-97); Mean Platelet Volume 9.9 um3 (7.4-10.4); Nucleated Red Blood Cells % 0.1; Platelet Count 172 10^3/ul (150-450); Red Blood Count 4.97 10^6/ul (4.0-5.4); Red Cell Distribution Width 13 % (10.5-15); White Blood Count 12.5 10^3/ul (3.5-10.8)
[2017-12-07 23:29] LABS: Urine Appearance Cloudy; Urine Blood Negative (Negative); Urine Color Amber; Urine Ketones 2+ (Negative); Urine Protein 2+(100 mg/dL) (Negative); Urine Specific Gravity 1.031 (1.010-1.030); Urine Urobilinogen Negative (Negative)
[2017-12-07 23:44] LABS: EGFR Non-African American 104.5 (>60)
--- NOTE | 2017-12-08 01:04 | ED ---
Nausea/Vomiting/Diarrhea HPI - HPI Summary HPI Summary: 22 female presents to ED with complaints of nausea, vomiting, diarrhea and feeling feverish/chills that began early this morning around 0200. States she has been unable to keep anything down. Admits to some diffuse abdominal cramping shortly before having to vomit or use bathroom. Denies any blood in vomit or diarrhea. Has not taken any medication. Is 7 months . Denies any recent antibiotic use, recent travek. Has had take out food. Denies any other symptoms. States her son just had the same thing/symptoms yesterday. States she is feeling dehydrated due to the amount of times she has vomited/ diarrhea episodes. No other complaints No PMHx. - History of Current Complaint Chief Complaint: EDNauseaVomitDiarrh Stated Complaint: VOMITING/DIARRHEA/7 MONTHS PREG Time Seen by Provider: 12/07/17 22:52 Hx Obtained From: Patient Hx Last Menstrual Period: 7 months ago ?: Yes Onset/Duration: Sudden Onset, Lasting Hours Timing: Intermittent Episodes Lasting: Severity Initially: Mild Severity Currently: None Pain Intensity: 0 Pain Scale Used: 0-10 Numeric Location: Diffuse - intermittently prior to vomit/diarrhea episodes Character: Cramping Aggravating Factor(s): Food Alleviating Factor(s): Nothing Nausea/Vomiting Presence: Nauseated, Vomiting Vomiting Frequency: Every 1-2 hours Nausea/Vomiting Duration: 12-24 hours Vomiting Characteristics: Retching, Bilious Diarrhea Presence: Yes Diarrhea Frequency: Every 1-2 hours Diarrhea Duration: 12-24 hours Diarrhea Characteristics: Watery - Allergies/Home Medications Allergies/Adverse Reactions: Allergies Allergy/AdvReac Type Severity Reaction Status Date / Time Adhesive Tape [Paper Tape] Allergy Rash And Verified 02/11/17 15:15 Itching amoxicillin Allergy Hives Verified 12/07/17 23:26 clindamycin Allergy Rash And Verified 12/07/17 22:40 Itching doxycycline Allergy Hives/Diff. Verified 12/07/17 23:28 Breathing/I tching lamotrigine [From Lamictal] Allergy Rash Verified 12/07/17 23:28 Penicillins Allergy Hives Verified 12/07/17 23:29 trazodone Allergy Agitation Verified 12/07/17 23:28 ANTIBIOTIC THAT STARTS WITH C Allergy Severe Hives Uncoded 02/11/17 15:15 PMH/Surg Hx/FS Hx/Imm Hx Endocrine/Hematology History: Denies: Hx Diabetes, Hx Thyroid Disease Cardiovascular History: Denies: Hx Congestive Heart Failure, Hx Hypertension Respiratory History: Reports: Hx Asthma - INHALERS Denies: Hx Chronic Obstructive Pulmonary Disease (COPD) GI History: Reports: Hx Gastroesophageal Reflux Disease - CONTROL WITH MEDS Denies: Hx Ulcer History: Reports: Other Problems/Disorders - FREQUENT YEAST INFECTION - NONE NOW Denies: Hx Renal Disease Sensory History: Denies: Hx Contacts or Glasses, Hx Hearing Aid Opthamlomology History: Denies: Hx Contacts or Glasses Neurological History: Reports: Hx Migraine - 4 TIMES A DAY, Other Neuro Impairments/Disorders - MOOD SWINGS, ADHD, INSOMNIA Psychiatric History: Reports: Hx Anxiety, Hx Depression, Other Psychiatric Issues/Disorders - ADHD,PTSD - Surgical History Surgery Procedure, Year, and Place: 01/2000 BILATERAL [place]OTOMY [place] [facility] [place]2000 ADEN[place]ECTOMY [place]IL[place] [facility] [place]. umbilical hernia repair Hx Anesthesia Reactions: Yes - TOOK LONGER TO WAKE UP - Immunization History Immunizations Up to Date: Yes Infectious Disease History: No Infectious Disease History: Denies: Hx Hepatitis, Hx Human Immunodeficiency Virus (HIV), Traveled Outside the [place] in Last 30 Days - Family History Known Family History: Positive: Cardiac Disease, Hypertension - Social History Alcohol Use: None Hx Substance Use: No Substance Use Type: Reports: None Hx Tobacco Use: Yes Smoking Status (MU): Former Smoker Type: Cigarettes Amount Used/How Often: 1 PPD Length of Time of Smoking/Using Tobacco: 6 YEARS Have You Smoked in the Last Year: No Review of Systems Positive: Chills Cardiovascular: Negative Respiratory: Negative Positive: Abdominal Pain, Vomiting, Diarrhea, Nausea Genitourinary: Negative Skin: Negative Neurological: Negative All Other Systems Reviewed And Are Negative: Yes Physical Exam Triage Information Reviewed: Yes Vital Signs On Initial Exam: Initial Vitals Temp Pulse Resp BP Pulse Ox 98.5 F 107 20 130/75 96 12/07/17 22:41 12/07/17 22:41 12/07/17 22:41 12/07/17 22:41 12/07/17 22:41 Vital Signs Reviewed: Yes Appearance: Positive: Well-Appearing, No Pain Distress, Well-Nourished Skin: Positive: Warm, Skin Color Reflects Adequate Perfusion, Dry, Jaundiced, Other - slightly decreased skin turgor however moist mucous membranes. Negative : Cold, Pale, Erythema @ Head/Face: Positive: Normal Head/Face Inspection Eyes: Positive: Normal ENT: Positive: Pharynx normal, TMs normal Neck: Positive: Supple, Nontender Respiratory/Lung Sounds: Positive: Clear to Auscultation, Breath Sounds Present. Negative: Rales, Wheezes Cardiovascular: Positive: Normal, RRR, Pulses are Symmetrical in both Upper and Lower Extremities. Negative: Murmur, Rub Abdomen Description: Positive: Nontender, No Organomegaly, Soft. Negative: Bruit, CVA Tenderness (R), CVA Tenderness (L), Distended, Guarding, McBurney's Point Tenderness, Peritoneal Signs Bowel Sounds: Positive: Present, Hyperactive Musculoskeletal: Positive: Normal, Strength/ROM Intact Neurological: Positive: Normal, Sensory/Motor Intact, Alert, Oriented to Person Place, Time Diagnostics - Vital Signs Vital Signs Temp Pulse Resp BP Pulse Ox 12/07/17 22:41 98.5 F 107 20 130/75 96 - Laboratory Lab Results: Lab Results 12/07/17 12/07/17 12/07/17 Range/Units 23:11 23:11 23:11 WBC 12.5 H (3.5-10.8) 10^3/ul RBC 4.97 (4.0-5.4) 10^6/ul Hgb 14.2 (12.0-16.0) g/dl Hct 42 (35-47) % MCV 85 (80-97) fL MCH 29 (27-31) pg MCHC 34 (31-36) g/dl RDW 13 (10.5-15) % Plt Count 172 (150-450) 10^3/ul MPV 9.9 (7.4-10.4) um3 Neut % (Auto) 87.8 H (38-83) % Lymph % (Auto) 4.1 L (25-47) % [place] % (Auto) 7.2 H (0-7) % Eos % (Auto) 0.5 (0-6) % Baso % (Auto) 0.4 (0-2) % Absolute Neuts (auto) 11.0 H (1.5-7.7) 10^3/ul Absolute Lymphs (auto) 0.5 L (1.0-4.8) 10^3/ul Absolute Monos (auto) 0.9 H (0-0.8) 10^3/ul Absolute Eos (auto) 0.1 (0-0.6) 10^3/ul Absolute Basos (auto) 0 (0-0.2) 10^3/ul Absolute Nucleated RBC 0 10^3/ul Nucleated RBC % 0.1 Sodium 135 (133-145) mmol/L Potassium 3.5 (3.5-5.0) mmol/L Chloride 104 (101-111) mmol/L Carbon Dioxide 17 L (22-32) mmol/L Anion Gap 14 H (2-11) mmol/L BUN 10 (6-24) mg/dL Creatinine 0.69 (0.51-0.95) mg/dL Est GFR ( Amer) 134.4 (>60) Est GFR (Non-Af Amer) 104.5 (>60) BUN/Creatinine Ratio 14.5 (8-20) Glucose 93 (70-100) mg/dL Lactic Acid 1.0 (0.5-2.0) mmol/L Calcium 9.0 (8.6-10.3) mg/dL Total Bilirubin 0.60 (0.2-1.0) mg/dL AST 21 (13-39) U/L ALT 19 (7-52) U/L Alkaline Phosphatase Pending C-Reactive Protein 8.03 H (< 5.00) mg/L Total Protein 7.2 (6.4-8.9) g/dL Albumin 3.9 (3.2-5.2) g/dL Globulin 3.3 (2-4) g/dL Albumin/Globulin Ratio 1.2 (1-3) Lipase 25 (11.0-82.0) U/L Beta HCG, Quant 71014.00 mIU/mL Urine Color Urine Appearance Urine pH (5-9) Ur Specific [place] (1.010-1.030) Urine Protein (Negative) Urine Ketones (Negative) Urine Blood (Negative) Urine Nitrate (Negative) Urine Bilirubin (Negative) Urine Urobilinogen (Negative) Ur Leukocyte Esterase (Negative) Urine WBC (Auto) (Absent) Urine RBC (Auto) (Absent) Ur Squamous Epith Cells (Absent) Urine Bacteria (Absent) Urine Glucose (Negative) Urine Ascorbic Acid (Negative) Influenza A (Rapid) (Negative) Influenza B (Rapid) (Negative) 12/07/17 12/07/17 Range/Units 23:11 23:48 WBC (3.5-10.8) 10^3/ul RBC (4.0-5.4) 10^6/ul Hgb (12.0-16.0) g/dl Hct (35-47) % MCV (80-97) fL MCH (27-31) pg MCHC (31-36) g/dl RDW (10.5-15) % Plt Count (150-450) 10^3/ul MPV (7.4-10.4) um3 Neut % (Auto) (38-83) % Lymph % (Auto) (25-47) % [place] % (Auto) (0-7) % Eos % (Auto) (0-6) % Baso % (Auto) (0-2) % Absolute Neuts (auto) (1.5-7.7) 10^3/ul Absolute Lymphs (auto) (1.0-4.8) 10^3/ul Absolute Monos (auto) (0-0.8) 10^3/ul Absolute Eos (auto) (0-0.6) 10^3/ul Absolute Basos (auto) (0-0.2) 10^3/ul Absolute Nucleated RBC 10^3/ul Nucleated RBC % Sodium (133-145) mmol/L Potassium (3.5-5.0) mmol/L Chloride (101-111) mmol/L Carbon Dioxide (22-32) mmol/L Anion Gap (2-11) mmol/L BUN (6-24) mg/dL Creatinine (0.51-0.95) mg/dL Est GFR ( Amer) (>60) Est GFR (Non-Af Amer) (>60) BUN/Creatinine Ratio (8-20) Glucose (70-100) mg/dL Lactic Acid (0.5-2.0) mmol/L Calcium (8.6-10.3) mg/dL Total Bilirubin (0.2-1.0) mg/dL AST (13-39) U/L ALT (7-52) U/L Alkaline Phosphatase C-Reactive Protein (< 5.00) mg/L Total Protein (6.4-8.9) g/dL Albumin (3.2-5.2) g/dL Globulin (2-4) g/dL Albumin/Globulin Ratio (1-3) Lipase (11.0-82.0) U/L Beta HCG, Quant mIU/mL Urine Color [place] Urine Appearance Cloudy Urine pH 5.0 (5-9) Ur Specific [place] 1.031 H (1.010-1.030) Urine Protein 2+(100 mg/dl) A (Negative) Urine Ketones 2+ A (Negative) Urine Blood Negative (Negative) Urine Nitrate Negative (Negative) Urine Bilirubin Negative (Negative) Urine Urobilinogen Negative (Negative) Ur Leukocyte Esterase Negative (Negative) Urine WBC (Auto) Trace(0-5/hpf) (Absent) Urine RBC (Auto) Trace(0-2/hpf) (Absent) Ur Squamous Epith Cells Present A (Absent) Urine Bacteria Absent (Absent) Urine Glucose Negative (Negative) Urine Ascorbic Acid * A (Negative) Influenza A (Rapid) Negative (Negative) Influenza B (Rapid) Negative (Negative) Result Diagrams: 12/07/17 23:11 12/07/17 23:11 Lab Statement: Any lab studies that have been ordered have been reviewed, and results considered in the medical decision making process. Re-Evaluation - Re-Evaluation First Eval Re-Evaluation Time: 01:02 Change: Improved - Feeling much better after medication, updated on labs. Patient requesting to be discharged Naus/Vom/Diarrhea Course/Dx - Course Course Of Treatment: labs and urinalysis obtained. showed slight increase of WBC with slight left shift. rest of labs unremarkable and urinalysis unremarkable. negative influenza. appears to be suffering from gastroenteritis. had relief after reglan and fluids. contiue at home. probiotics, BRAT diet, reglan as needed and increase fluids. all questions answered. no other concerns at this time. aware of worsening signs and symptoms to watch out for. follow up with PCP to ensure improvement. stable vital signs. - Differential Dx/Diagnosis Differential Diagnoses - Female: Gastroenteritis (Viral) Provider Diagnoses: Gastroenteritis Condition At Discharge: Improved Discharge - Sign-Out/Discharge Documenting (check all that apply): Discharge - Discharge Plan Condition: Improved Disposition: HOME Prescriptions: Metoclopramide TAB* [Reglan TAB*] 5 mg PO Q8H PRN #5 tab PRN Reason: Nausea Patient Education Materials: Gastroenteritis (ED), Acute Nausea and Vomiting ( ED) Referrals: Nica Bravo NP [Primary Care Provider] - Additional Instructions: Increased fluid intake. Recommended Brat diet including bananas rice applesauce and toast. Recommend daily probiotic. Take prescribed medication for nausea only as needed. Follow-up with primary care provider in 2 days and she had improvement. Any new or worsening symptoms please seek medical attention promptly. - Billing Disposition and Condition Condition: IMPROVED Disposition: HOME
[2017-12-08 01:18] VITALS: BP 126/72
== END 2017-12-08 01:19 | disposition home or self-care (01) ==
LOC: ED 22:32
DX: K52.9 Noninfective gastroenteritis and colitis, unspecified (principal); R11.2 Nausea with vomiting, unspecified; R19.7 Diarrhea, unspecified; Z87.891 Personal history of nicotine dependence; R10.9 Unspecified abdominal pain
CPT/HCPCS: 36415; 80053; 81003; 81015; 83605; 83690; 84702; 85025; 86140; 87086; 87502; 96374; 99282; J2765

== ENCOUNTER 2017-12-23 19:35 | Emergency (ER) | payer OTHER, MEDICAID ==
--- OUTSIDE RECORDS SUMMARY | 2017-12-23 19:51 | XMS REPORT ---
:1995 External Reference #:[id number] Author Organization [facility] Address [address], [address] [place] [address] Phone [phone] Care Team Providers Name Role Phone Anabel Veliz CNM Care Team Information Veneer Taping Machine Offbearer Unavailable Nica Bravo NP Primary Care Physician Unavailable Payers Type Date Identification Numbers Payment Provider Subscriber Commercial Policy Number: [id number] Jeffrey Mayeriane Yogi PayID: [id number] [address] [place] [address] Medicaid Policy Number: [id number] Medicaid Heidi Barrera Group Name: 1 2 [address] PayID: [id number] [place] [address] Problems Description No Information Family History Date [...] Patient is currently sexually active Age 1st [place] 14 Years Old # Partners in a [...] every Z3A.28 Anabel Vitamin /2017 s day Bor, CNM Chewable Juan José 11/05 Active Chewtabs 15mg 120un 2 tab by mouth Z3A.28 With its every day Borra, Iron/Children CNM s Lansoprazole 10/27 Active Capsules 15mg 30cap take [address] elmus by mouth daily Borra, for CNM gastroesophageal [...] CNM Vital Signs Date Vital Result Comment 12/17/2017 BP Systolic 110 mmHg BP Diastolic 68 mmHg Height 65 inches 5'5" Weight 181.38 lb BMI (Body Mass Index) 30.2 kg/m2 BSA (Body Surface Area) 1.90 m2 [place] body weight in kilograms 57 11/19/2017 BP Systolic 117 mmHg BP Diastolic 64 mmHg Height 65 inches 5'5" Weight 180.00 lb BMI (Body Mass Index) 30.0 kg/m2 BSA (Body Surface Area) 1.89 m2 [place] body weight in kilograms 57 11/05/2017 BP Systolic 102 mmHg BP Diastolic 62 mmHg Height 65 inches 5'5" Weight 178.25 lb BMI (Body Mass Index) 29.7 kg/m2 BSA (Body Surface Area) 1.88 m2 [place] body weight in kilograms 57 10/27/2017 BP Systolic 98 mmHg BP Diastolic 54 mmHg Height 65 inches 5'5" Weight 176.50 lb BMI (Body Mass Index) 29.4 kg/m2 BSA (Body Surface Area) 1.88 m2 [place] body weight in kilograms 57 08/31/2017 BP Systolic 108 mmHg BP Diastolic 76 mmHg Height 65 inches 5'5" Weight 160.38 lb BMI (Body Mass Index) 26.7 kg/m2 BSA (Body Surface Area) 1.80 m2 [place] body weight in kilograms 57 Last Menstrual Period [id number] Results Test Date Test Result H/L Range [...] 4 Lymph # 1.27 K/uL 1.0-4.0 4 [place] # 0.78 K/uL 0.3-0.9 4 Eos # [...] Treponema Antibody Negative Negative 4, 10 finding Spurger Slide Review DIFF ORDERED 4 Differential-WBC Confirm [...] 08/31/2017 Treponema Antibody Negative Negative 12 finding [place]urger CBS W/Automated 08/31/2017 White Blood Count 7.9 [...] 12 Lymph % 21.2 % 20.0-42.0 12 [place] % 8.4 % 4.3-13.2 12 Eo% 2.8 % 0.0-6.6 12 Bas% 0.3 % 0.0-1.1 12 Neut# 5.30 K/uL 1.8-7.0 12 Lymph # 1.67 K/uL 1.0-4.0 12 [place] # 0.66 K/uL 0.3-0.9 12 Eos # 0.22 K/uL 0.0-0.5 12 Baso # 0.02 K/uL 0.0-0.1 12 Genital Culture W/ Gram 08/31/2017 Gram Stain GRAM STAIN INDIC <SEE 12, 14 Stain NOTE> Gram Stain MODERATE GR POS. <SEE NOTE> 12, 15 Gram Stain FEW WHITE BLOOD <SEE NOTE> 12, 16 Genital Culture GENITAL EDITH 12 Cystic Fibrosis,Dna 08/31/2017 Cystic Fibrosis [id number] 12, 17 Analysis Chlamydia/GC Lenora 08/31/2017 Chlamydia Negative Negative 12 Trachomatis, Lenora Neisseria Gonorrhoeae, Lenora Negative Negative 12 Please note: (SEE NOTE) Laboratory test 08/31/2017 Rubella IgG 3.99 index Immune >0.99 , 19 finding Antibody Laboratory test 08/31/2017 Hepatitis B Negative Negative 12 finding Surface Antigen Hepatitis C Antibody < 0.1 s/corat 0.0-0.9 12, 20 Lead,Blood (Adult) <1 g/dL 0-19 12, 21 Type And Screen 08/31/2017 Patient Blood Type O POS 12 Antibody Screen Negative Negative 12 Urine Culture 08/31/2017 Urine Culture URETHRAL EDITH 12 Quantity 10,000 - 50,000 <SEE NOTE> , 22 Drugs Of Abuse-Urine Screen 7 08/31/2017 [...] to: [] - 11/05/17 at 16411/05/17 1642: MONO % previously reported as: 10.8 % Amended result called to: [] - 11/05/17 at 164111/05/17 1642: EO% previously reported as: 2.8 % Amended result called to: [] - 11/05/17 at 1642 11/05/17 1642: BAS% previously reported as: 0.3 % Amended result called to: [] - 11/05/17 at 1642 6 POST GLUCOLA 7 NO SPECIMEN RECEIVED 8 NO SPECIMEN RECEIVED 9 Performed at: [address] [id number] Scalemaker: Keena Prabhakar MD, Phone: [phone] 10 Performed at: [address] [id number] Scalemaker: Wilver Groves MD, Phone: [phone] 11 LARGE PLATELETS PRESENT. 12 Z34.82 13 Performed at: [address] [id number] Scalemaker: Keena Prabhakar MD, Phone: [phone] 14 GRAM STAIN INDICATES NORMAL GENITAL EDITH [...] 0.90 - 0.99 Immune >0.99 Performed at: [address] [id number] Scalemaker: Keena Prabhakar MD, Phone: [phone] Performed at: [address] [id number] Scalemaker: Wilver Groves MD, Phone: [phone] 20 INFCE Result Units: s/co ratio Negative: < 0.8 Indeterminate: 0.8 - 0.9 Positive: > 0.9 The CDC recommends that a positive HCV antibody result be followed up with a HCV Nucleic Acid Amplification test (305621). 21 Environmental Exposure: WHO Recommendation <20 Occupational Exposure: OSHA Lead Std 40 MATA 30 Detection Limit=1 Performed at: [address] [id number] Scalemaker: Keena Prabhakar MD, Phone: [phone] 22 10,000 - 50,000 CFU/mL 23 URINE [...] Description No Information Plan of Care Future Appointment(s):01/05/2018 2:00 pm - Anabel Veliz CNM at [facility]
[2017-12-23] MEDS ORDERED: Meclizine TAB* 12.5 MG PO ONE (20:29)
[2017-12-23 20:59] LABS: ABS Basophils 0 10^3/ul (0-0.2); ABS Eosinophils 0.1 10^3/ul (0-0.6); ABS Lymphocytes 1.6 10^3/ul (1.0-4.8); ABS Neutrophils 5.7 10^3/ul (1.5-7.7); ABS Nucleated RBC 0 10^3/ul; Eosinophil % 1.6 % (0-6); Hematocrit 35 % (35-47); Hemoglobin 12.3 g/dl (12.0-16.0); Lymphocyte % 18.8 % (25-47); Mean Corpuscular HGB Conc 35 g/dl (31-36); Mean Corpuscular Hemoglobin 29 pg (27-31); Mean Corpuscular Volume 82 fL (80-97); Mean Platelet Volume 10.3 um3 (7.4-10.4); Nucleated Red Blood Cells % 0.1; Platelet Count 175 10^3/ul (150-450); Red Blood Count 4.27 10^6/ul (4.0-5.4); Red Cell Distribution Width 13 % (10.5-15); White Blood Count 8.5 10^3/ul (3.5-10.8)
[2017-12-23 21:19] LABS: EGFR Non-African American 144.9 (>60)
--- NOTE | 2017-12-23 21:42 | RAD ---
Indication: 35 weeks 5 days gestation based on September 30, 2017 ultrasound. Abdominal pain. Comparison: September 30, 2017 ultrasound. Technique: Transabdominal obstetrical ultrasound. REPORT: Single intrauterine fetus is in cephalic presentation. Spontaneous motion and cardiac activity present. heart rate: 123 bpm. The volume of amniotic fluid is qualitatively normal. Amniotic fluid index is 6.42 cm. (Normal range 5-25 cm) The cervical length is 3.0 cm. Negative for placenta previa. Posterior placenta with only limited visualization of the placenta limited due to advanced gestational age. Mean BPD: 8.67 cm corresponding to 35 weeks 0 days Mean HC: 31.78 cm corresponding to 35 weeks 0 days Mean AC: 31.72 cm corresponding to 35 weeks 5 days Mean FL: 7.04 cm corresponding to 36 weeks 1 day Composite gestational age: 35 weeks 4 days HC / AC ratio: 0.98 weight: 2722 g plus or minus: 398 g. Three-vessel cord with normal anterior abdominal wall insertion. Unremarkable 4 chamber heart view documented on cine loop. IMPRESSION: Limited obstetrical ultrasound documenting a single live intrauterine gestation with appropriate interval growth compared with the September 30, 2017 exam. Lower range of normal heart rate measuring 123 bpm. Low end of normal range amniotic fluid volume.
[2017-12-23 21:46] LABS: Urine Appearance Clear; Urine Blood Negative (Negative); Urine Color Yellow; Urine Ketones Negative (Negative); Urine Protein Negative (Negative); Urine Specific Gravity 1.015 (1.010-1.030); Urine Urobilinogen Negative (Negative)
[2017-12-23] MEDS ORDERED: Potassium Chlor TAB* 20 MEQ TAB.ER PO ONE (21:59)
[2017-12-23 22:04] VITALS: BP 107/56
--- NOTE | 2017-12-24 01:14 | ED ---
Nael Cuadra Nilda, scribed for Camilla Godoy MD on 12/23/17 at 2037 . Dizziness - HPI Summary HPI Summary: This patient is a 22 year old F presenting to [facility] with a chief complaint of constant dizziness (room-spinning, lightheadedness) today. The patient rates the pain 0/10 in severity. Symptoms aggravated by movement and alleviated by rest. Patient reports seeing stars last night (resolved today). She states for the past 3 days she has had clear, water-like vaginal discharge. Patient denies nausea, unsteadiness with ambulation, and abd cramps. Pt states shes 34 weeks and that the baby has been moving throughout . Pt notes she sees a group fitness manager. /A0. - History Of Current Complaint Chief Complaint: EDDizziness Stated Complaint: 8 MONTHS PREG/DIZZY Time Seen by Provider: 12/23/17 20:20 Hx Obtained From: Patient Onset/Duration: Still Present, Suddenly Timing: Constant Character: Room Spinning, Lightheaded, Dizzy Aggravating Factor(s): Exertion Alleviating Factor(s): Rest Associated Signs And Symptoms: Positive: Other: - reports seeing stars last night. She states for the past 3 days she has had clear, water-like vaginal discharge. Patient denies nausea, unsteadiness with ambulation, and abd cramps. - Allergies/Home Medications Allergies/Adverse Reactions: Allergies Allergy/AdvReac Type Severity Reaction Status Date / Time Adhesive Tape [Paper Tape] Allergy Rash And Verified 12/23/17 19:42 Itching amoxicillin Allergy Hives Verified 12/23/17 19:42 clindamycin Allergy Rash And Verified 12/23/17 19:42 Itching doxycycline Allergy Hives/Diff. Verified 12/23/17 19:42 Breathing/I tching lamotrigine [From Lamictal] Allergy Rash Verified 12/23/17 19:42 Penicillins Allergy Hives Verified 12/23/17 19:42 trazodone Allergy Agitation Verified 12/23/17 19:42 ANTIBIOTIC THAT STARTS WITH C Allergy Severe Hives Uncoded 12/23/17 19:42 PMH/Surg Hx/FS Hx/Imm Hx Endocrine/Hematology History: Denies: Hx Diabetes, Hx Thyroid Disease Cardiovascular History: Denies: Hx Congestive Heart Failure, Hx Hypertension Respiratory History: Reports: Hx Asthma - INHALERS Denies: Hx Chronic Obstructive Pulmonary Disease (COPD) GI History: Reports: Hx Gastroesophageal Reflux Disease - CONTROL WITH MEDS Denies: Hx Ulcer History: Reports: Other Problems/Disorders - FREQUENT YEAST INFECTION - NONE NOW Denies: Hx Renal Disease Sensory History: Denies: Hx Contacts or Glasses, Hx Hearing Aid Opthamlomology History: Denies: Hx Contacts or Glasses Neurological History: Reports: Hx Migraine - 4 TIMES A DAY, Other Neuro Impairments/Disorders - MOOD SWINGS, ADHD, INSOMNIA Psychiatric History: Reports: Hx Anxiety, Hx Depression, Other Psychiatric Issues/Disorders - ADHD,PTSD - Surgical History Surgery Procedure, Year, and Place: 01/2000 BILATERAL MYRINGOTOMY WITH TUBE INSERTION, [facility] [place]. 04/2000 ADENOIDECTOMY AND TONSILLECTOMY, [facility] [place]. umbilical hernia repair Hx Anesthesia Reactions: Yes - TOOK LONGER TO WAKE UP Infectious Disease History: No Infectious Disease History: Denies: Hx Hepatitis, Hx Human Immunodeficiency Virus (HIV), Traveled Outside the in Last 30 Days - Family History Known Family History: Positive: Cardiac Disease, Hypertension - Social History Alcohol Use: None Hx Substance Use: No Substance Use Type: Reports: None Hx Tobacco Use: Yes Smoking Status (MU): Former Smoker Type: Cigarettes Amount Used/How Often: 1 PPD Length of Time of Smoking/Using Tobacco: 6 YEARS Have You Smoked in the Last Year: No Review of Systems Negative: Abdominal Pain, Nausea Positive: discharge, other - Pt is 34 weeks . Neurological: Other - dizziness (room-spinning, lightheadedness), seeing stars last night (resolved); negative unsteadiness with ambulation All Other Systems Reviewed And Are Negative: Yes Physical Exam - Summary Physical Exam Summary: VITAL SIGNS: Reviewed. GENERAL: Patient is a well-developed and nourished female who is lying comfortable in the stretcher. Patient is not in any acute respiratory distress. HEAD AND FACE: No signs of trauma. No ecchymosis, hematomas or skull depressions. No sinus tenderness. EYES: PERRLA, EOMI x 2, No injected conjunctiva, no nystagmus. EARS: Hearing grossly intact. Ear canals and tympanic membranes are within normal limits. MOUTH: Oropharynx within normal limits. NECK: Supple, trachea is midline, no adenopathy, no JVD, no carotid bruit, no c- spine tenderness, neck with full ROM. CHEST: Symmetric, no tenderness at palpation LUNGS: Clear to auscultation bilaterally. No wheezing or crackles. CVS: Regular rate and rhythm, S1 and S2 present, no murmurs or gallops appreciated. ABDOMEN: Soft, non-tender. Fundal level is 34 weeks. No rebound no guarding, and no masses palpated. Bowel sounds are normal. EXTREMITIES: FROM in all major joints, no edema, no cyanosis or clubbing. NEURO: Alert and oriented x 3. No acute neurological deficits. Speech is normal and follows commands. Vertigo induced by head movement. SKIN: Dry and warm Triage Information Reviewed: Yes Vital Signs On Initial Exam: Initial Vitals Temp Pulse Resp BP Pulse Ox 98.0 F 89 16 122/78 97 12/23/17 19:38 12/23/17 19:38 12/23/17 19:38 12/23/17 19:38 12/23/17 19:38 Vital Signs Reviewed: Yes Diagnostics - Vital Signs Vital Signs Temp Pulse Resp BP Pulse Ox 12/23/17 19:38 98.0 F 89 16 122/78 97 - Laboratory Result Diagrams: 12/23/17 20:50 12/23/17 20:50 Lab Statement: Any lab studies that have been ordered have been reviewed, and results considered in the medical decision making process. - EKG 2041 Cardiac Rate: NL EKG Rhythm: Sinus Rhythm - 81 bpm EKG Interpretation: nonspecific T wave changes in inferior leads. - Additional Comments Diagnostic Additional Comments: US, per radiologist, reveals : Limited obstetrical ultrasound documenting a single live intrauterine gestation with appropriate interval growth compared with the September 30, 2017 exam. Lower range of normal heart rate measuring 123 bpm. Low end of normal range amniotic fluid volume. Dr. Godoy has reviewed this radiology report. Re-Evaluation - Re-Evaluation First Eval Re-Evaluation Time: 22:00 Comment: Reviewed labs and imgaging with pt. Dizzy Course/Dx - Course Assessment/Plan: Pt is 22 y/o who is 34 weeks c/o dizziness and vertigo. Pt had steady gait. ROM test collected with nurse Castro present to r/o premature rupture of membrane. Pt refused to take anti-vert. There is no evidence of amniotic fluid leak. Pt will be d/c home with follow up with OB. Dx Dizziness and vertigo. - Diagnoses Provider Diagnoses: Dizziness, Vertigo Discharge - Sign-Out/Discharge Documenting (check all that apply): Discharge - home - Discharge Plan Condition: Stable Disposition: HOME Patient Education Materials: Vertigo (ED), Dizziness (ED) Referrals: Nica Bravo NP [Primary Care Provider] - 3 Days Additional Instructions: Follow up with OB. RETURN TO THE EMERGENCY DEPARTMENT FOR CHANGING OR WORSENING SYMPTOMS. The documentation as recorded by the Nael carrillo Nilda accurately reflects the service I personally performed and the decisions made by Walt montes Abdul, MD.
== END 2017-12-23 22:31 | disposition home or self-care (01) ==
LOC: ED 19:35
DX: R42 Dizziness and giddiness (principal); Z87.891 Personal history of nicotine dependence
CPT/HCPCS: 36415; 76815; 80053; 81003; 81015; 84112; 85025; 87086; 93005; 96374; 99283; A9270-GY

== ENCOUNTER 2018-01-26 20:39 | Emergency (ER) | payer OTHER, MEDICAID ==
[2018-01-26 20:51] VITALS: BP 110/65
--- OUTSIDE RECORDS SUMMARY | 2018-01-26 21:14 | XMS REPORT ---
:1995 External Reference #:[id number] Author Organization Counts Include [facility] Address [address], [address] [place] [address] Phone [phone] Care Team Providers Name Role Phone Anabel Veliz CNM Care Team Information Regional Coordinator Unavailable Nica Bravo NP Primary Care Physician Unavailable Payers Type Date Identification Numbers Payment Provider Subscriber Commercial Policy Number: [id number] Jeffrey Senia Calix PayID: [id number] [address] [place] [address] Medicaid Policy Number: [id number] Medicaid Heidi Echeverria Group Name: 1 2 [address] PayID: [id number] [place] [address] Problems Date Description Provider Status Onset: 12/17/2017 Suprvsn of preg w insufficient antenat care, Anabel Veliz CNM Active second tri Family History Date Family Member(s) Problem(s) Comments [...] Patient is currently sexually active Age 1st Murphy 14 Years Old # Partners in a Lifetime over 10 Allergies, Adverse Reactions, Alerts Date Description Reaction Status Severity Comments 08/31/2017 Penicillins Contact dermatitis active Mild 08/31/2017 Lamotrigine Contact dermatitis active Mild 10/27/2017 Clindamycin Urticaria, Hot flashes active 10/27/2017 Amoxicillin Urticaria active Medications Medication Date Status Form Strength Qnty SIG Indications Ordering Provider 11/05 Active Tablets 90tab 1 by mouth every Z3A.28 Vitamin /2017 s day Borra, CNM Chewable Juan José 11/05 Active Chewtabs 15mg 120un 2 tab by mouth Z3A.28 its every day Borra, Iron/Children CNM s Lansoprazole 10/27 Active Capsules 15mg 30cap take [address] s by mouth daily Borra, for CNM gastroesophageal reflux disease 10/12 Active Chewtabs 0.4-32.5m 120un 1 by mouth every Anabel Gummies/Dha g its day Borra, & Folic CNM [...] capsule Z34.82 200mg s by mouth every Borra, day. CNM Vital Signs Date Vital Result Comment 01/21/2018 BP Systolic 107 mmHg BP Diastolic 70 mmHg Height 65 inches 5'5" Weight 184.25 lb BMI (Body Mass Index) 30.7 kg/m2 BSA (Body Surface Area) 1.91 m2 [place] body weight in kilograms 57 12/17/2017 BP Systolic 110 mmHg BP Diastolic 68 mmHg Height 65 inches 5'5" Weight 181.38 lb BMI (Body Mass Index) 30.2 kg/m2 BSA (Body Surface Area) 1.90 m2 [place] body weight in kilograms 57 11/19/2017 BP Systolic 117 mmHg BP Diastolic 64 mmHg Height 65 inches 5'5" Weight 180.00 lb BMI (Body Mass Index) 30.0 kg/m2 BSA (Body Surface Area) 1.89 m2 [place] body weight in kilograms 57 11/05/2017 BP Systolic 102 mmHg BP Diastolic 62 mmHg Height 65 inches 5'5" Weight 178.25 lb BMI (Body Mass Index) 29.7 kg/m2 BSA (Body Surface Area) 1.88 m2 [place] body weight in kilograms 57 10/27/2017 BP Systolic 98 mmHg BP Diastolic 54 mmHg Height 65 inches 5'5" Weight 176.50 lb BMI (Body Mass Index) 29.4 kg/m2 BSA (Body Surface Area) 1.88 m2 [place] body weight in kilograms 57 08/31/2017 BP Systolic 108 mmHg BP Diastolic 76 mmHg Height 65 inches 5'5" Weight 160.38 lb BMI (Body Mass Index) 26.7 kg/m2 BSA (Body Surface Area) 1.80 m2 [place] body weight in kilograms 57 Last Menstrual Period [id number] Results Test Date Test Result H/L Range Note Laboratory test 01/21/2018 Vaginal Strep NO GROUP B STREP 1, 2 finding Screen <SEE NOTE> Urine Dipstick 01/21/2018 Ua Color yellow Yellow Ua Clarity clear Clear Ua Leuko 1+ High Negative Ua Nitrite negative Negative Ua Urobilinogen negative Low 0.2 - 1.0 E.U./dL Ua Protein trace Negative Ua PH 5.0 Low 6.5-7.5 Ua Blood trace Negative Ua Specific [place] 1.025 1.010-1.030 Ua Ketones negative Negative Ua Bilirubin negative Negative Ua Glucose negative Negative Comp Metabolic Panel 12/23/2017 Sodium 136 mmol/L Low 139-145 Potassium 3.4 mmol/L Low 3.5-5.0 Chloride 103 mmol/L 101-111 Co2 Carbon Dioxide 26 mmol/L 22-32 Anion Gap 7 mmol/L 2-11 Glucose 87 mg/dL 70-100 Blood Urea Nitrogen 6 mg/dL 6-24 Creatinine 0.52 mg/dL 0.51-0.95 BUN/Creatinine Ratio 11.5 8-20 Calcium 8.4 mg/dL Low 8.6-10.3 Total Protein 6.3 g/dL Low 6.4-8.9 Albumin 3.4 g/dL 3.2-5.2 Globulin 2.9 g/dL 2-4 Albumin/Globulin Ratio 1.2 1-3 Total Bilirubin 0.40 mg/dL 0.2-1.0 Alkaline Phosphatase 99 U/L 34-104 Alt 17 U/L 7-52 Ast 19 U/L 13-39 Egfr Non- 144.9 >60 Egfr 186.3 >60 3 Urinalysis Profile 12/23/2017 Urine Color Yellow Urine Appearance Clear Urine Specific [place] 1.015 1.010-1.030 Urine pH 6.0 5-9 Urine Urobilinogen Negative Negative Urine Ketones Negative Negative Urine Protein Negative Negative Urine Leukocytes Trace Negative Urine Blood Negative Negative Urine Nitrite Negative Negative Urine Bilirubin Negative Negative Urine Glucose Negative Negative Urine White Blood Cell Trace(0-5/hpf) Absent Urine Red Blood Cell Absent Absent Urine Bacteria Absent Absent Urine Squamous Epithelial Cell Present Absent Urine Culture And 12/23/2017 Urine Culture SEE RESULT BELOW 4 Sensitivities CBC Auto Diff 12/23/2017 White Blood Count 8.5 10^3/uL 3.5-10.8 Red Blood Count 4.27 10^6/uL 4.0-5.4 Hemoglobin 12.3 g/dL 12.0-16.0 Hematocrit 35 % 35-47 Mean Corpuscular Volume 82 fL 80-97 Mean Corpuscular Hemoglobin 29 pg 27-31 Mean Corpuscular HGB Conc 35 g/dL 31-36 Red Cell Distribution Width 13 % 10.5-15 Platelet Count 175 10^3/uL 150-450 Mean Platelet Volume 10.3 um3 7.4-10.4 Abs Neutrophils 5.7 10^3/uL 1.5-7.7 Abs Lymphocytes 1.6 10^3/uL 1.0-4.8 Abs Monocytes 1.0 10^3/uL High 0-0.8 Abs Eosinophils 0.1 10^3/uL 0-0.6 Abs Basophils 0 10^3/uL 0-0.2 Abs Nucleated RBC 0 10^3/uL Granulocyte % 67.7 % 38-83 Lymphocyte % 18.8 % Low 25-47 Monocyte % 11.5 % High 0-7 Eosinophil % 1.6 % 0-6 Basophil % 0.4 % 0-2 Nucleated Red Blood Cells % 0.1 Laboratory test finding 12/23/2017 Rupture of Membranes Negative 5 Urine Culture 11/19/2017 Urine Culture URETHRAL EDITH 6 Quantity 10,000 - 50,000 <SEE NOTE> 6, 7 Affirm Vaginitis Panel 11/19/2017 Trichomonas vaginalis Negative [ Negative] 6 Gardnerella vaginalis Negative [Negative] 6 Misti species Negative [Negative] 6, 8 Differential-WBC Confirm 11/05/2017 Total Cells Counted 100 #CELLS 9 Metamyelocyte% 1 % 0% 9 Band% 6 % 0-8 9 Neutrophils% 59 % 33-73 9 Lymph% 17 % Low 20-42 9 Atypical Lymph% 1 % 0-7 9 Monocyte% 11 % High 0-10 9 Eosinophil% 4 % 0-5 9 Basophil% 1 % 0-2 9 Platelet Estimate NORMAL 9 Toxic Granulation 0-1+ 9 Differential Comment LARGE PLATELETS <SEE NOTE> 9, 10 CBS W/Automated Diff 11/05/2017 White Blood Count 7.2 K/uL 3.1-10.7 9 Red Blood Count 4.36 M/uL 3.90-5.40 9 Hemoglobin 12.9 gm/dL 11.6-15.8 9 Hematocrit 37.2 % 36.0-46.1 9 Mean Cell Volume 85.3 fl 80.9-99.0 9 Mean Corpuscular HGB 29.6 pg 25.9-32.7 9 Mean Corpuscular HGB Conc 34.7 g/dL High 30.8-34.3 9 Platelet Count 166 K/uL 155-360 9 Red Cell Distri Width SD 42.9 fl 3-47 9 Red Cell Distri Width %CV 14.1 % 11.7-14.4 9 Mean Platelet Volume 13.0 fL High 8.9-12.4 9, 11 Neut# 4.93 K/uL 1.8-7.0 9 Lymph # 1.27 K/uL 1.0-4.0 9 [place] # 0.78 K/uL 0.3-0.9 9 Eos # 0.20 K/uL 0.0-0.5 9 Baso # 0.02 K/uL 0.0-0.1 9 Glucose,1 HR Post Glucola 11/05/2017 1 HR Glucose,Post Glucola 91 mg/dL - 138 9, 12 1 Hour Urine Glucose NO SPECIMEN RECE <SEE NOTE> % Negative 9, 13 1 Hour Urine Ketone NO SPECIMEN RECE <SEE NOTE> Negative 9, 14 HIV Screen 4TH Gen 11/05/2017 HIV Screen 4th Non Reactive Non Reactive 9 , 15 Reflex Generation wRfx Laboratory test 11/05/2017 Treponema Antibody Negative Negative 9, 16 finding [place] Slide Review DIFF ORDERED 9 Drugs Of Abuse-Urine Screen 7 08/31/2017 Amphetamines (Urine) Negative 17 Barbiturates (Urine) Negative 17 Benzodiazepines (Urine) Negative 17 Cannabinoids (Urine) Negative 17 Cocaine Metabolite (Urine) Negative 17 Methadone (Urine) Negative 17 Opiates (Urine) Negative 17 Urine Cutoffs * 17, 18 Urine Culture 08/31/2017 Urine Culture URETHRAL EDITH 17 Quantity 10,000 - 50,000 <SEE NOTE> 17, 19 Type And Screen 08/31/2017 Patient Blood Type O POS 17 Antibody Screen Negative Negative 17 Laboratory test finding 08/31/2017 Hepatitis B Surface Negative Negative 17 Antigen Hepatitis C Antibody < 0.1 s/corat 0.0-0.9 17, 20 Lead,Blood (Adult) <1 g/dL 0-19 17, 21 Laboratory test 08/31/2017 Rubella IgG 3.99 index Immune >0.99 17, 22 finding Antibody Chlamydia/GC Len[place] 08/31/2017 Chlamydia Negative Negative 17 Trachomatis, Lenora Neisseria Gonorrhoeae, [place] Negative Negative 17 Please note: (SEE NOTE) 17, 23 Cystic Fibrosis,Dna 08/31/2017 Cystic Fibrosis [id number] 17, 24 Analysis Genital Culture W/ Gram 08/31/2017 Gram Stain GRAM STAIN INDIC 17, 25 Stain <SEE NOTE> Gram Stain MODERATE GR POS. <SEE NOTE> 17, 26 Gram Stain FEW WHITE BLOOD <SEE NOTE> 17, 27 Genital Culture GENITAL EDITH 17 CBS W/Automated Diff 08/31/2017 White Blood Count 7.9 K/uL 3.1-10.7 17 Red Blood Count 4.89 M/uL 3.90-5.40 17 Hemoglobin 14.5 gm/dL 11.6-15.8 17 Hematocrit 41.6 % 36.0-46.1 17 Mean Cell Volume 85.1 fl 80.9-99.0 17 Mean Corpuscular HGB 29.7 pg 25.9-32.7 17 Mean Corpuscular HGB Conc 34.9 g/dL High 30.8-34.3 17 Platelet Count 172 K/uL 155-360 17 Red Cell Distri Width SD 44.2 fl 3-47 17 Red Cell Distri Width %CV 14.6 % High 11.7-14.4 17 Mean Platelet Volume 12.9 fL High 8.9-12.4 17 Neut% 67.3 % 40.4-72.8 17 Lymph % 21.2 % 20.0-42.0 17 [place] % 8.4 % 4.3-13.2 17 Eo% 2.8 % 0.0-6.6 17 Bas% 0.3 % 0.0-1.1 17 Neut# 5.30 K/uL 1.8-7.0 17 Lymph # 1.67 K/uL 1.0-4.0 17 [place] # 0.66 K/uL 0.3-0.9 17 Eos # 0.22 K/uL 0.0-0.5 17 Baso # 0.02 K/uL 0.0-0.1 17 Laboratory test 08/31/2017 Treponema Antibody Negative Negative 17 finding [place] HIV Screen 4TH Gen 08/31/2017 HIV Screen 4th Non Reactive Non Reactive 17, 28 Reflex Generation wRfx 1 O09.32 2 NO GROUP B STREPTOCOCCI ISOLATED 3 Because ethnic data is not always readily available, this report includes an eGFR for both -Americans and non- Americans. The National Kidney Disease Education Program (NKDEP) does not endorse the use of the MDRD equation for patients that are not between the ages of 18 and 70, are , have extremes of body size, muscle mass, or nutritional status, or are non- or non-. According to the National Kidney Foundation, irrespective of diagnosis, the stage of the disease is based on the level of kidney function: Stage Description GFR(mL/min/1.73 m(2)) 1 Kidney damage with normal or decreased GFR 90 2 Kidney damage with mild decrease in GFR 60-89 3 Moderate decrease in GFR 30-59 4 Severe decrease in GFR 15-29 5 Kidney failure <15 (or dialysis) 4 SEE RESULT BELOW Name: HEIDI ECHEVERRIA : [address]: Camilla Godoy MD Acct: [id number] Unit: [id number] AGE: 22 Location: ED Re12/23/17 SEX: F Status: DEP ER SPEC: [id number] LEIDY: 12/23/[address]: Camilla Godoy MD REQ: [id number] RECD: 12/23/17 STATUS: AWILDA HOPSON DR: Nica Bravo NP Anabel Veliz CNM _ SOURCE: URINE SPDESC: ORDERED: Urine Culture Procedure Result Reported Site Urine Culture Final 12/24/17- 1638 ML No Growth (<1,000 CFU/mL) * ML - Main Lab . END OF REPORT DEPARTMENT OF PATHOLOGY, [address] [place] [address] Tomer Ochoa M.D. Director [facility] # [id number] 5 A NEGATIVE results indicates there is no evidence of membrane rupture. 6 R10.2 7 10,000 - 50,000 CFU/mL 8 Method: BD Affirm VPIII DNA Probe Assay 9 Z3A.28 10 LARGE PLATELETS PRESENT. 11 11/05/17 1642: NEUT% previously reported as: 68.5 [...] called to: [] - 11/05/17 at 1642 12 POST GLUCOLA 13 NO SPECIMEN RECEIVED 14 NO SPECIMEN RECEIVED 15 Performed at: [facility] [id number] Service Line Coordinator: Keena Prabhakar MD, Phone: [phone] 16 Performed at: - [facility] [id number] Service Line Coordinator: Wilver Groves MD, Phone: [phone] 17 Z34.82 18 URINE SPECIMENS ARE SCREENED AT THE LISTED CUTOFFS DRUG CLASS INITIAL TEST LEVEL Amphetamines 1000 ng/mL Barbiturates 200 ng/mL Benzodiazepines 200 ng/mL Cannabinoids 50 ng/mL Cocaine Metabolite 300 ng/mL Methadone 300 ng/mL Opiates 300 ng/mL Any PRESUMPTIVE POSITIVE findings are UNCONFIRMED. Confirmatory testing is suggested if findings are unexpected. Please contact laboratory if confirmatory testing is desired. SPECIMENS ARE HELD FOR 72 HOURS. 19 10,000 - 50,000 CFU/mL 20 INFCE Result Units: s/co ratio Negative: < 0.8 Indeterminate: 0.8 - 0.9 Positive: > 0.9 The CDC recommends that a positive HCV antibody result be followed up with a HCV Nucleic Acid Amplification test (022828). 21 Environmental Exposure: WHO Recommendation <20 Occupational Exposure: OSHA Lead Std 40 MATA 30 Detection Limit=1 Performed at: [address] [id number] Service Line Coordinator: Keena Prabhakar MD, Phone: [phone] 22 Non-immune <0.90 Equivocal 0.90 - 0.99 Immune >0.99 Performed at: [address] [id number] Service Line Coordinator: Keena Prabhakar MD, Phone: [phone] Performed at: [address] [id number] Service Line Coordinator: Wilver Groves MD, Phone: [phone] 23 . A negative result for either C. trachomatis and/or N. gonorrhoeae does not preclued an infection because results are dependent on adequate specimen collection, absence of inhibitors, and sufficient DNA to be detected. 24 FORWARDED TO REFERENCE LABORATORY. 25 GRAM STAIN INDICATES NORMAL GENITAL EDITH 26 MODERATE GR POS. BACILLI SUGGESTIVE OF LACTOBACILLUS SP. 27 FEW WHITE BLOOD CELLS 28 Performed at: [address] [id number] Service Line Coordinator: Keena Prabhakar MD, Phone: [phone] Procedures Date CPT Code Description Status 01/21/2018 77113 Non-Stress Test (NST) Completed Plan of Care No Information Available
--- OUTSIDE RECORDS SUMMARY | 2018-01-26 21:14 | XMS REPORT ---
:1995 External Reference #:[id number] Author Organization [facility] Address [address] [place] [address] Phone [phone] Care Team Providers Name Role Phone Anabel Veliz CNM Care Team Information Machin[employer] Unavailable Nica Bravo NP Primary Care Physician Unavailable Payers Type Date Identification Numbers Payment Provider Subscriber Commercial Policy Number: [id number] Jeffrey Senia Calix PayID: [id number] [address] [place] [address] Medicaid Policy Number: [id number] Medicaid Heidi Echeverria Group Name: 1 2 [address] PayID: [id number] [place] [address] Problems Date Description Provider Status Onset: 12/17/2017 [...] Patient is currently sexually active Age [address] [place] 14 Years Old # Partners in a [...] kg/m2 BSA (Body Surface Area) 1.91 m2 Dillard body weight in kilograms 57 12/17/2017 BP Systolic 110 mmHg BP Diastolic 68 mmHg Height 65 inches 5'5" Weight 181.38 lb BMI (Body Mass Index) 30.2 kg/m2 BSA (Body Surface Area) 1.90 m2 Dillard body weight in kilograms 57 11/19/2017 BP Systolic 117 mmHg BP Diastolic 64 mmHg Height 65 inches 5'5" Weight 180.00 lb BMI (Body Mass Index) 30.0 kg/m2 BSA (Body Surface Area) 1.89 m2 Dillard body weight in kilograms 57 11/05/2017 BP Systolic 102 mmHg BP Diastolic 62 mmHg Height 65 inches 5'5" Weight 178.25 lb BMI (Body Mass Index) 29.7 kg/m2 BSA (Body Surface Area) 1.88 m2 Dillard body weight in kilograms 57 10/27/2017 BP Systolic 98 mmHg BP Diastolic 54 mmHg Height 65 inches 5'5" Weight 176.50 lb BMI (Body Mass Index) 29.4 kg/m2 BSA (Body Surface Area) 1.88 m2 Dillard body weight in kilograms 57 08/31/2017 BP Systolic 108 mmHg BP Diastolic 76 mmHg Height 65 inches 5'5" Weight 160.38 lb BMI (Body Mass Index) 26.7 kg/m2 BSA (Body Surface Area) 1.80 m2 Dillard body weight in kilograms 57 Last Menstrual Period [id number] Results Test Date Test Result H/L Range Note Laboratory test 01/21/2018 Vaginal Strep <pending> finding Screen Urine Dipstick 01/21/2018 Ua Color yellow Yellow Ua Clarity clear Clear Ua Leuko 1+ High Negative Ua Nitrite negative Negative Ua Urobilinogen negative Low 0.2 - 1.0 E.U./dL Ua Protein trace Negative Ua PH 5.0 Low 6.5-7.5 Ua Blood trace Negative Ua Specific [place] 1.025 1.010-1.030 Ua Ketones negative Negative Ua Bilirubin negative Negative Ua Glucose negative Negative Urinalysis Profile 12/23/2017 Urine Color Yellow Urine Appearance Clear Urine Specific [place] 1.015 1.010-1.030 Urine pH 6.0 5-9 Urine [...] And 12/23/2017 Urine Culture SEE RESULT BELOW 1 Sensitivities Laboratory test finding 12/23/2017 Rupture of Negative 2 Membranes CBC Auto Diff 12/23/2017 White Blood Count [...] 0-2 Nucleated Red Blood Cells % 0.1 Comp Metabolic Panel 12/23/2017 Sodium 136 mmol/L [...] Non- 144.9 >60 Egfr 186.3 >60 3 Urine Culture 11/19/2017 Urine Culture URETHRAL EDITH 4 Quantity 10,000 - 50,000 <SEE NOTE> 4, 5 Affirm Vaginitis Panel 11/19/2017 Trichomonas vaginalis Negative [ Negative] 4 Gardnerella vaginalis Negative [Negative] 4 Misti species Negative [Negative] 4, 6 Differential-WBC Confirm 11/05/2017 Total Cells Counted 100 #CELLS 7 Metamyelocyte% 1 % 0% 7 Band% 6 % 0-8 7 Neutrophils% 59 % 33-73 7 Lymph% 17 % Low 20-42 7 Atypical Lymph% 1 % 0-7 7 Monocyte% 11 % High 0-10 7 Eosinophil% 4 % 0-5 7 Basophil% 1 % 0-2 7 Platelet Estimate NORMAL 7 Toxic Granulation 0-1+ 7 Differential Comment LARGE PLATELETS <SEE NOTE> 7, 8 Laboratory test finding 11/05/2017 Treponema Antibody Negative Negative 7, 9 Rooks Slide Review DIFF ORDERED 7 HIV Screen 4TH Gen 11/05/2017 HIV Screen 4th Non Reactive Non Reactive 7 , 10 Reflex Generation wRfx Glucose,1 HR Post 11/05/2017 1 HR Glucose,Post 91 mg/dL -138 7, 11 Glucola Glucola 1 Hour Urine Glucose NO SPECIMEN RECE <SEE NOTE> % Negative 7, 12 1 Hour Urine Ketone NO SPECIMEN RECE <SEE NOTE> Negative 7, 13 CBS W/Automated Diff 11/05/2017 White Blood Count 7.2 K/uL 3.1-10.7 7 Red Blood Count 4.36 M/uL 3.90-5.40 7 Hemoglobin 12.9 gm/dL 11.6-15.8 7 Hematocrit 37.2 % 36.0-46.1 7 Mean Cell Volume 85.3 fl 80.9-99.0 7 Mean Corpuscular HGB 29.6 pg 25.9-32.7 7 Mean Corpuscular HGB Conc 34.7 g/dL High 30.8-34.3 7 Platelet Count 166 K/uL 155-360 7 Red Cell Distri Width SD 42.9 fl 3-47 7 Red Cell Distri Width %CV 14.1 % 11.7-14.4 7 Mean Platelet Volume 13.0 fL High 8.9-12.4 7, 14 Neut# 4.93 K/uL 1.8-7.0 7 Lymph # 1.27 K/uL 1.0-4.0 7 Marathon # 0.78 K/uL 0.3-0.9 7 Eos # 0.20 K/uL 0.0-0.5 7 Baso # 0.02 K/uL 0.0-0.1 7 Drugs Of Abuse-Urine Screen 7 08/31/2017 Amphetamines (Urine) Negative 15 Barbiturates (Urine) Negative 15 Benzodiazepines (Urine) Negative 15 Cannabinoids (Urine) Negative 15 Cocaine Metabolite (Urine) Negative 15 Methadone (Urine) Negative 15 Opiates (Urine) Negative 15 Urine Cutoffs * 15, 16 Urine Culture 08/31/2017 Urine Culture URETHRAL EDITH 15 Quantity 10,000 - 50,000 <SEE NOTE> 15, 17 Type And Screen 08/31/2017 Patient Blood Type O POS 15 Antibody Screen Negative Negative 15 Laboratory test finding 08/31/2017 Hepatitis B Surface Negative Negative 15 Antigen Hepatitis C Antibody < 0.1 s/corat 0.0-0.9 15, 18 Lead,Blood (Adult) <1 g/dL 0-19 15, 19 Laboratory test 08/31/2017 Rubella IgG 3.99 index Immune >0.99 15, 20 finding Antibody Chlamydia/GC Lenora 08/31/2017 Chlamydia Negative Negative 15 Trachomatis, Lenora Neisseria Gonorrhoeae, Lenora Negative Negative 15 Please note: (SEE NOTE) 15, 21 Cystic Fibrosis,Dna 08/31/2017 Cystic Fibrosis [id number] 15, 22 Analysis Genital Culture W/ Gram 08/31/2017 Gram Stain GRAM STAIN INDIC 15, 23 Stain <SEE NOTE> Gram Stain MODERATE GR POS. <SEE NOTE> 15, 24 Gram Stain FEW WHITE BLOOD <SEE NOTE> 15, 25 Genital Culture GENITAL EDITH 15 CBS W/Automated Diff 08/31/2017 White Blood Count 7.9 K/uL 3.1-10.7 15 Red Blood Count 4.89 M/uL 3.90-5.40 15 Hemoglobin 14.5 gm/dL 11.6-15.8 15 Hematocrit 41.6 % 36.0-46.1 15 Mean Cell Volume 85.1 fl 80.9-99.0 15 Mean Corpuscular HGB 29.7 pg 25.9-32.7 15 Mean Corpuscular HGB Conc 34.9 g/dL High 30.8-34.3 15 Platelet Count 172 K/uL 155-360 15 Red Cell Distri Width SD 44.2 fl 3-47 15 Red Cell Distri Width %CV 14.6 % High 11.7-14.4 15 Mean Platelet Volume 12.9 fL High 8.9-12.4 15 Neut% 67.3 % 40.4-72.8 15 Lymph % 21.2 % 20.0-42.0 15 Marathon % 8.4 % 4.3-13.2 15 Eo% 2.8 % 0.0-6.6 15 Bas% 0.3 % 0.0-1.1 15 Neut# 5.30 K/uL 1.8-7.0 15 Lymph # 1.67 K/uL 1.0-4.0 15 Marathon # 0.66 K/uL 0.3-0.9 15 Eos # 0.22 K/uL 0.0-0.5 15 Baso # 0.02 K/uL 0.0-0.1 15 Laboratory test 08/31/2017 Treponema Antibody Negative Negative 15 finding Rooks HIV Screen 4TH Gen 08/31/2017 HIV Screen 4th Non Reactive Non Reactive 15, 26 Reflex Generation wRfx 1 SEE RESULT BELOW Name: HEIDI ECHEVERRIA : [address]: Camilla Godoy MD Acct: [id number] Unit: [id number] AGE: 22 Location: ED Re12/23/17 SEX: F Status: DEP ER SPEC: [id number] LEIDY: 12/23/[address] [facility] [address]: Camilla Godoy MD REQ: [id number] RECD: 12/23/17 STATUS: COMP [facility] DR: Nica Veliz [facility] _ SOURCE: URINE SPDESC: ORDERED: Urine Culture Procedure Result Reported Site Urine Culture Final 12/24/17- 1638 ML No Growth (<1,000 CFU/mL) * ML - Main Lab . END OF REPORT DEPARTMENT OF PATHOLOGY, [address] [place] [address] Tomer Ochoa M.D. Director [facility] # [id number] 2 A NEGATIVE results indicates there is no evidence of membrane rupture. 3 Because ethnic data is not always [...] 5 Kidney failure <15 (or dialysis) 4 R10.2 5 10,000 - 50,000 CFU/mL 6 Method: BD Affirm VPIII DNA Probe Assay 7 Z3A.28 8 LARGE PLATELETS PRESENT. 9 Performed at: - [facility] [id number] Skin Care Specialist: Wilver Groves MD, Phone: [phone] 10 Performed at: - [facility] [address] [id number] Skin Care Specialist: Keena Prabhakar MD, Phone: [phone] 11 POST GLUCOLA 12 NO SPECIMEN RECEIVED 13 NO SPECIMEN RECEIVED 14 11/05/17 1642: NEUT% previously reported as: 68.5 [...] called to: [] - 11/05/17 at 1642 15 Z34.82 16 URINE SPECIMENS ARE SCREENED AT THE LISTED [facility] INITIAL TEST LEVEL Amphetamines 1000 ng/mL Barbiturates 200 ng/mL Benzodiazepines 200 ng/mL Cannabinoids 50 ng/mL Cocaine Metabolite 300 ng/mL Methadone 300 ng/mL Opiates 300 ng/mL Any PRESUMPTIVE POSITIVE findings are UNCONFIRMED. Confirmatory testing is suggested if findings are unexpected. Please contact laboratory if confirmatory testing is desired. SPECIMENS ARE HELD FOR 72 HOURS. 17 10,000 - 50,000 CFU/mL 18 INFCE Result Units: s/co ratio Negative: < 0.8 Indeterminate: 0.8 - 0.9 Positive: > 0.9 The CDC recommends that a positive HCV antibody result be followed up with a HCV Nucleic Acid Amplification test (975822). 19 Environmental Exposure: WHO Recommendation <20 Occupational Exposure: OSHA Lead Std 40 MATA 30 Detection Limit=1 Performed at: [address] [id number] Skin Care Specialist: Keena Prabhakar MD, Phone: [phone] 20 Non-immune <0.90 Equivocal 0.90 - 0.99 Immune >0.99 Performed at: [address] [id number] Skin Care Specialist: Keena Prabhakar MD, Phone: [phone] Performed at: [address] [id number] Skin Care Specialist: Wilver Groves MD, Phone: [phone] 21 . A negative result for either C. trachomatis and/or N. gonorrhoeae does not preclued an infection because results are dependent on adequate specimen collection, absence of inhibitors, and sufficient DNA to be detected. 22 FORWARDED TO REFERENCE LABORATORY. 23 GRAM STAIN INDICATES NORMAL GENITAL EDITH 24 MODERATE GR POS. BACILLI SUGGESTIVE OF LACTOBACILLUS SP. 25 FEW WHITE BLOOD CELLS 26 Performed at: [address] [id number] Skin Care Specialist: Keena Prabhakar MD, Phone: [phone] Procedures Description No Information Plan of Care No Information Available
--- NOTE | 2018-01-26 22:05 | ED ---
Jose Cuadra Natalie, scribed for Wilver Durant MD on 01/26/18 at 205 . - HPI Summary HPI Summary: The patient is a 22 y/o F presenting to the ED c/o possible labor with 2-3 minute-apart contractions with sudden onset today. She isnt sure exactly what time the contractions started, but mucous has been discharging for a few days. This is the pts fourth , the baby is full term, two days past due date of 01/24/18. Her pre-miguel care started at 4 months because she found out late because she is on the depo shot. She denies any problems with this . Her water hasnt broken yet she states that her water hasn't ever broken with pregnancies. After her second child, she had blood clots that were removed. All pregnancies were natural births. No surgeries. . Current OB is in [place]. - History of Current Complaint Chief Complaint: EDOBProblems Stated Complaint: POSSIBLE LABOR Time Seen by Provider: 01/26/18 20:41 Hx Obtained From: Patient Onset/Duration: Started Minutes Ago, Still Present Timing: Constant, Lasting Hours Severity: Moderate Current Severity: Moderate Location of Pain: None Aggravating Factors: Nothing Alleviating Factors: Nothing Associated Signs and Symptoms: Positive: Other: - mucous plug discharge for a few days - Assessment Hx Now: Yes - 13 weeks, trying to get in with OB Hx : 4 SAB: 0 IEA: 0 - Additional Pertinent History Maternal Blood Type and Rh: O Positive - Allergies/Home Medications Allergies/Adverse Reactions: Allergies Allergy/AdvReac Type Severity Reaction Status Date / Time Adhesive Tape [Paper Tape] Allergy Rash And Verified 01/26/18 21:51 Itching clindamycin Allergy Rash And Verified 01/26/18 21:51 Itching doxycycline Allergy Hives/Diff. Verified 01/26/18 21:51 Breathing/I tching lamotrigine [From Lamictal] Allergy Rash Verified 01/26/18 21:51 Penicillins Allergy Hives Verified 01/26/18 21:51 trazodone Allergy Agitation Verified 01/26/18 21:51 PMH/Surg Hx/FS Hx/Imm Hx Endocrine/Hematology History: Denies: Hx Diabetes, Hx Thyroid Disease Cardiovascular History: Denies: Hx Congestive Heart Failure, Hx Hypertension Respiratory History: Reports: Hx Asthma - INHALERS Denies: Hx Chronic Obstructive Pulmonary Disease (COPD) GI History: Reports: Hx Gastroesophageal Reflux Disease - CONTROL WITH MEDS Denies: Hx Ulcer History: Reports: Other Problems/Disorders - FREQUENT YEAST INFECTION - NONE NOW Denies: Hx Kidney Infection, Hx Renal Disease Sensory History: Denies: Hx Contacts or Glasses, Hx Hearing Aid Opthamlomology History: Denies: Hx Contacts or Glasses Neurological History: Reports: Hx Migraine - 4 TIMES A DAY, Other Neuro Impairments/Disorders - MOOD SWINGS, ADHD, INSOMNIA Psychiatric History: Reports: Hx Anxiety, Hx Depression, Other Psychiatric Issues/Disorders - ADHD,PTSD - Surgical History Surgery Procedure, Year, and Place: 01/2000 BILATERAL MYRINGOTOMY WITH [place]ION, [facility] [place]2000 ADENOIDECTOMY AND TONSIL[place]OMY, [facility] [place]. umbilical hernia repair Hx Anesthesia Reactions: Yes - TOOK LONGER TO WAKE UP Infectious Disease History: Denies: Hx Hepatitis, Hx Human Immunodeficiency Virus (HIV) - Family History Known Family History: Positive: Cardiac Disease, Hypertension - Social History Alcohol Use: None Hx Substance Use: No Substance Use Type: Reports: None Hx Tobacco Use: Yes Smoking Status (MU): Former Smoker Type: Cigarettes Amount Used/How Often: 1 PPD Length of Time of Smoking/Using Tobacco: 6 YEARS Have You Smoked in the Last Year: No Review of Systems Negative: Fever Genitourinary: Other - with contractions 2-3 minutes apart All Other Systems Reviewed And Are Negative: Yes Physical Exam - Summary Physical Exam Summary: General: well-appearing, mild pain distress, gravid Skin: warm, color reflects adequate perfusion, dry Head: normal Eyes: EOMI, GRAEME ENT: normal Neck: supple, nontender Respiratory: CTA, breath sounds present Cardiovascular: RRR Abdomen: soft, nontender Bowel: present Musculoskeletal: normal, strength/ROM intact Neurological: normal, sensory/motor intact, A&O x3 Psychological: affect/mood appropriate - Physical Exam Triage Information Reviewed: Yes Vital Signs Reviewed: Yes Diagnostics - Vital Signs Vital Signs Temp Pulse Resp BP Pulse Ox 01/26/18 20:57 98.8 F 80 16 110/65 98 01/26/18 20:48 79 98 01/26/18 20:47 98.8 F 81 16 110/65 98 - Laboratory Lab Statement: Any lab studies that have been ordered have been reviewed, and results considered in the medical decision making process. Course/Dx - Course Course Of Treatment: Pts medications reviewed this visit. Allergies noted. High blood pressure noted and patient advised to follow up with PCP. ACCEPTED TO [facility] AND TRANSFERED THERE. - Diagnoses Provider Diagnoses: Uterine contractions during Discharge - Sign-Out/Discharge Documenting (check all that apply): Discharge/Admit/Transfer - Discharge Plan Condition: Stable Disposition: ADMITTED TO [facility] Referrals: Nica Bravo NP [Primary Care Provider] - Additional Instructions: Your blood pressure was elevated during todays visit; please follow up with your primary care provider within a week for further evaluation. - Billing Disposition and Condition Condition: STABLE Disposition: HOSP-[facility] [place] The documentation as recorded by the Jose carrillo Natalie accurately reflects the service I personally performed and the decisions made by me, Wilver Durant MD.
== END 2018-01-26 20:57 | disposition short-term general hospital (02) ==
LOC: ED 20:39
DX: O80 Encounter for full-term uncomplicated delivery (principal); Z3A.40 40 weeks gestation of pregnancy; Z87.891 Personal history of nicotine dependence; Z88.0 Allergy status to penicillin; Z88.3 Allergy status to other anti-infective agents; Z88.8 Allergy status to other drugs, medicaments and biological substances
CPT/HCPCS: 99283

== ENCOUNTER 2018-09-09 16:40 | Emergency (ER) | payer OTHER, MEDICAID ==
--- NOTE | 2018-09-09 17:01 | UC ---
General HPI - HPI Summary HPI Summary: 22 yo female c/o approx 1 week cough, chest congestion, nasal d/c. Sniffles started earlier. Hx asthma but ran out of medication (albuterol). Possible fever / no chills. No rash. No GI issues. + cough productive yellow. + pain in R lat chest with cough last couple days. - History of Current Complaint Stated Complaint: RESP COMPLAINT Time Seen by Provider: 09/09/18 16:48 Hx Obtained From: Patient Hx Last Menstrual Period: 7 months ago - Allergy/Home Medications Allergies/Adverse Reactions: Allergies Allergy/AdvReac Type Severity Reaction Status Date / Time Adhesive Tape [Paper Tape] Allergy Rash And Verified 09/09/18 17:29 Itching clindamycin Allergy Rash And Verified 09/09/18 17:29 Itching doxycycline Allergy Hives/Diff. Verified 09/09/18 17:29 Breathing/I tching lamotrigine [From Lamictal] Allergy Rash Verified 09/09/18 17:29 Penicillins Allergy Hives Verified 09/09/18 17:29 trazodone Allergy Agitation Verified 09/09/18 17:29 PMH/Surg Hx/FS Hx/Imm Hx Previously Healthy: Yes - see hpi - Surgical History Surgical History: Yes Surgery Procedure, Year, and Place: 01/2000 [place] [facility] [place] [facility] [place] her[place] - Family History Known Family History: Positive: Cardiac Disease, Hypertension - Social History Alcohol Use: None Substance Use Type: None Smoking Status (MU): Former Smoker Type: Cigarettes Amount Used/How Often: 1 PPD Length of Time of Smoking/Using Tobacco: 6 YEARS Have You Smoked in the Last Year: No When Did the Patient Quit Smoking/Using Tobacco: 2011 - Immunization History Vaccination Up to Date: Yes Review of Systems All Other Systems Reviewed And Are Negative: Yes Constitutional: Positive: Other - see hpi Skin: Positive: Negative Eyes: Positive: Negative ENT: Positive: Nasal Discharge, Sinus Congestion Respiratory: Positive: Cough Cardiovascular: Positive: Other - pain in R lat chest with cough Gastrointestinal: Positive: Negative Genitourinary: Positive: Negative Motor: Positive: Negative Neurovascular: Positive: Negative Musculoskeletal: Positive: Other: - see hpi Neurological: Positive: Negative Psychological: Positive: Negative Is Patient Immunocompromised?: No Physical Exam Triage Information Reviewed: Yes Appearance: Well-Nourished - sitting up, conversing easily and appropriately. NAD. Able to converse in full sentences. Vital Signs Reviewed: Yes Eye Exam: Normal ENT: Positive: Pharynx normal - normal except mild edema c/w post nasal drip, TM dull - TM dull, Rtx'd Left Neck exam: Normal Neck: Positive: Supple, Nontender Respiratory Exam: Other - + rhonchorus cough. + mild exp wheeze. No stridor. BS equal, full. Tender mid costocondral region R lat chest wall approx #8/9 region. No crepitus. No rash. Cardiovascular Exam: Normal Cardiovascular: Positive: RRR, No Murmur, Pulses Normal, Brisk Capillary Refill Abdominal Exam: Normal Abdomen Description: Positive: Nontender Musculoskeletal Exam: Normal Neurological Exam: Normal - grossly nonfocal Psychological Exam: Normal Skin Exam: Normal - no visible or reported rash. nondiaphoretic. Course/Dx - Course Course Of Treatment: CXR ordered, pt request test (neg). Prelim reading no pneumonia, no fx, mild hyperinflation. Influenza ns - pt declined. Albuterol inhaler here and for home. Reports that azithromycin has been tolerable. [facility]CP (pt is between PCP's). COA / tx plan reviewed. Questions as posed answered to the best of my ability. Addendum - pt requested medications to be dispensed tonight since she will not be able to get a ride to the pharmacy until tomorrow. - Diagnoses Provider Diagnosis: Bronchitis, Wheezing Discharge - Sign-Out/Discharge Documenting (check all that apply): Patient Departure All imaging exams completed and their final reports reviewed: No - Discharge Plan Condition: Stable Disposition: HOME Prescriptions: Albuterol HFA INHALER* [Ventolin HFA Inhaler*] 2 puff INH Q4H PRN #1 mdi PRN Reason: Wheezing Azithromyxin ZAID (NF) [Z-Zaid (Zithromax) 250 mg tabs #6] 2 tab PO .TODAY, THEN 1 DAILY #6 tab Benzonatate CAP* [Tessalon 100 MG CAP*] 100 mg PO TID PRN #30 cap PRN Reason: Cough Patient Education Materials: Acute Bronchitis (ED), Serous Otitis Media (ED), Wheezing (ED) Referrals: Nica Bravo NP [Primary Care Provider] - [facility] [Outside] Additional Instructions: Drink plenty of water. Follow up with a primary care physician as soon as you are able. Please seek medical attention for worse or new problems. Yogurt daily, dl if taking antibiotic. - Billing Disposition and Condition Condition: STABLE Disposition: Home
[2018-09-09] MEDS: Albuterol HFA INHALER* 8 gm MDI INH ONE (18:02)
[2018-09-09] MEDS: Benzonatate CAP* 100 MG PO ONE (19:14)
[2018-09-09] MEDS: Azithromycin TAB* 250 MG PO ONE (19:14)
[2018-09-09 19:53] VITALS: BP 122/67
--- NOTE | 2018-09-10 14:22 | UC ---
- Progress Note Progress Note: RADIOLOGY REPORT REVIEWED. CXR UNREMARKABLE. NO CHANGE IN MGMT. Course/Dx - Diagnoses Provider Diagnoses: Bronchitis, Wheezing Discharge - Sign-Out/Discharge Documenting (check all that apply): Post-Discharge Follow Up All imaging exams completed and their final reports reviewed: Yes - Discharge Plan Condition: Stable Disposition: HOME Prescriptions: Albuterol HFA INHALER* [Ventolin HFA Inhaler*] 2 puff INH Q4H PRN #1 mdi PRN Reason: Wheezing Azithromyxin ZAID (NF) [Z-Zaid (Zithromax) 250 mg tabs #6] 2 tab PO .TODAY, THEN 1 DAILY #6 tab Benzonatate CAP* [Tessalon 100 MG CAP*] 100 mg PO TID PRN #30 cap PRN Reason: Cough Patient Education Materials: Acute Bronchitis (ED), Serous Otitis Media (ED), Wheezing (ED) Referrals: [facility] [place] [facility] REFERR[facility] [Outside] Nica Bravo [employer]W LEADER [Primary Care Provider] - Additional Instructions: Drink plenty of water. Follow up with a primary care physician as soon as you are able. Please seek medical attention for worse or new problems. Yogurt daily, dl if taking antibiotic. - Billing Disposition and Condition Condition: STABLE Disposition: Home
== END 2018-09-09 19:22 | disposition home or self-care (01) ==
LOC: UCEAST 16:40
DX: R06.2 Wheezing (principal); J40 Bronchitis, not specified as acute or chronic; Z88.1 Allergy status to other antibiotic agents; Z88.0 Allergy status to penicillin; Z88.8 Allergy status to other drugs, medicaments and biological substances; Z87.891 Personal history of nicotine dependence
CPT/HCPCS: 71046; 84702; 99213; A9270-GY; G0463

== ENCOUNTER 2019-02-15 14:38 | Emergency (ER) | payer MEDICAID, OTHER ==
[2019-02-15 15:47] LABS: Urine Appearance Clear; Urine Bilirubin Negative (Negative); Urine Blood Negative (Negative); Urine Color Straw; Urine Glucose Negative (Negative); Urine Ketones Negative (Negative); Urine Nitrite Negative (Negative); Urine Protein Negative (Negative); Urine Specific Gravity 1.008 (1.010-1.030); Urine Urobilinogen Negative (Negative)
[2019-02-15 15:48] LABS: ABS Basophils 0.1 10^3/ul (0-0.2); ABS Eosinophils 0.2 10^3/ul (0-0.6); ABS Lymphocytes 1.6 10^3/ul (1.0-4.8); ABS Monocytes 0.7 10^3/ul (0-0.8); ABS Neutrophils 6.1 10^3/ul (1.5-7.7); Hematocrit 42 % (35-47); Hemoglobin 14.2 g/dL (12.0-16.0); Lymphocyte % 18.5 %; Mean Corpuscular HGB Conc 34 g/dL (31-36); Mean Corpuscular Hemoglobin 28 pg (27-31); Mean Corpuscular Volume 82 fL (80-97); Mean Platelet Volume 9.6 fL (7.4-10.4); Nucleated Red Blood Cells % 0.1; Platelet Count 240 10^3/uL (150-450); Red Blood Count 5.11 10^6 /uL (3.70-4.87); Red Cell Distribution Width 15 % (10.5-15); White Blood Count 8.7 10^3/uL (3.5-10.8)
[2019-02-15 16:11] LABS: BUN/Creatinine Ratio 16.2 (8-20); Calcium 9.4 mg/dL (8.6-10.3); EGFR African American 127.6 (>60); EGFR Non-African American 105.4 (>60); Potassium 3.7 mmol/L (3.5-5.0)
--- NOTE | 2019-02-15 16:12 | ED ---
GI/ HPI - HPI Summary HPI Summary: Pt is a 23 y/o F presenting to the ED sent in by Dr. Novak office for evaluation for possible ectopic . 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 She has not had an ectopic before, but notes that her mother has. Last week on 02/08/19 she went to the [facility] for a test because she was dizzy, and it came back positive, but two weeks prior the test was negative. They have tried to visualize the sac with ultrasound and have not been able to, which is why she presents today. She has no hx of STI, but reports frequent yeast infections and UTIs. She has one partner and does not use any form of control. She denies vaginal bleeding, abd pain, and urinary sx. She reports slight lower abd cramping, constipation, and a stye in her R eye. [id number] - History of Current Complaint Chief Complaint: EDOBProblems Time Seen by Provider: 02/15/19 15:40 Stated Complaint: RULE OUT EPTOPIC PREG PER PT Hx Obtained From: Patient Hx Last Menstrual Period: 7 months ago Onset/Duration: Started Days Ago, Still Present Timing: Constant, Lasting Days Severity: Moderate Current Severity: None Vaginal Bleeding Description: Clots Pain Intensity: 4 Location of Pain: Suprapubic Associated Signs and Symptoms: Positive: Constipation, Other: - slight cramping. Negative: Abdominal Pain, UTI Symptoms Additional Signs & Symptoms: Negative: Vaginal Bleeding Aggravating Factor(s): Nothing Alleviating Factor(s): Nothing - Allergy/Home Medications Allergies/Adverse Reactions: Allergies Allergy/AdvReac Type Severity Reaction Status Date / Time Adhesive Tape [Paper Tape] Allergy Rash And Verified 02/15/19 15:19 Itching clindamycin Allergy Rash And Verified 02/15/19 15:19 Itching doxycycline Allergy Hives/Diff. Verified 02/15/19 15:19 Breathing/I tching lamotrigine [From Lamictal] Allergy Rash Verified 02/15/19 15:19 Penicillins Allergy Hives Verified 02/15/19 15:19 trazodone Allergy Agitation Verified 02/15/19 15:19 PMH/Surg Hx/FS Hx/Imm Hx Previously Healthy: Yes Endocrine/Hematology History: Denies: Hx Diabetes, Hx Thyroid Disease Cardiovascular History: Denies: Hx Congestive Heart Failure, Hx Hypertension Respiratory History: Reports: Hx Asthma - INHALERS Denies: Hx Chronic Obstructive Pulmonary Disease (COPD) GI History: Reports: Hx Gastroesophageal Reflux Disease - CONTROL WITH MEDS Denies: Hx Ulcer History: Reports: Other Problems/Disorders - FREQUENT YEAST INFECTION - NONE NOW Denies: Hx Kidney Infection, Hx Renal Disease Sensory History: Denies: Hx Contacts or Glasses, Hx Hearing Aid Opthamlomology History: Denies: Hx Contacts or Glasses Neurological History: Reports: Hx Migraine - 4 TIMES A DAY, Other Neuro Impairments/Disorders - MOOD SWINGS, ADHD, INSOMNIA Psychiatric History: Reports: Hx Anxiety, Hx Depression, Other Psychiatric Issues/Disorders - ADHD,PTSD - Surgical History Surgery Procedure, Year, and Place: 01/2000 BILATERAL MYRINGOTOMY WITH TUBE INSERTION, [facility]. 04/2000 ADENOIDECTOMY AND TONSILLECTOMY, [facility]. umbilical hernia repair Hx Anesthesia Reactions: Yes - TOOK LONGER TO WAKE UP Infectious Disease History: No Infectious Disease History: Denies: Hx Hepatitis, Hx Human Immunodeficiency Virus (HIV), Traveled Outside the in Last 30 Days - Family History Known Family History: Positive: Cardiac Disease, Hypertension, Other - mom ectopic - Social History Alcohol Use: None Hx Substance Use: No Substance Use Type: Reports: None Hx Tobacco Use: Yes Smoking Status (MU): Former Smoker Type: Cigarettes Amount Used/How Often: 1 PPD Length of Time of Smoking/Using Tobacco: 6 YEARS Have You Smoked in the Last Year: No Review of Systems Positive: Other - stye Positive: Other - slight abd cramping, like menstrual cramps. constipation. Negative: Abdominal Pain Negative: no symptoms reported, other - vaginal bleeding All Other Systems Reviewed And Are Negative: Yes Physical Exam - Summary Physical Exam Summary: Appearance: Ill-appearing, moderate pain distress, well-nourished Skin: Warm, color reflects adequate perfusion, dry Head: Normal Head/Face inspection, atraumatic Eyes: Conjunctiva clear. R lower lid erythema and edema punctate lesion on far lateral lower lid. ENT: Poor dentition Neck: Supple, no nodes, no JVD Respiratory: Lungs clear, normal breath sounds, no respiratory distress Cardio: RRR, No murmur, pulses normal, brisk capillary refill Abdomen: Soft, nontender. Umbilical hernia scar, fundus not palpable under pelvic rim Bowel sounds: Present Musculoskeletal: Strength Intact/ROM intact, no calf tenderness, no edema. Psychological: Normal Neuro: Alert, muscle tone normal, no focal deficit Triage Information Reviewed: Yes Vital Signs On Initial Exam: Initial Vitals Temp Pulse Resp BP Pulse Ox 98.5 F 78 16 121/72 100 02/15/19 14:42 02/15/19 14:42 02/15/19 14:42 02/15/19 14:42 02/15/19 14:42 Vital Signs Reviewed: Yes Diagnostics - Vital Signs Vital Signs Temp Pulse Resp BP Pulse Ox 02/15/19 14:42 98.5 F 78 16 121/72 100 - Laboratory Lab Results: Lab Results 02/15/19 02/15/19 02/15/19 Range/Units 15:35 15:39 15:39 WBC 8.7 (3.5-10.8) 10^3/uL RBC 5.11 H (3.70-4.87) 10^6 /uL Hgb 14.2 (12.0-16.0) g/dL Hct 42 (35-47) % MCV 82 (80-97) fL MCH 28 (27-31) pg MCHC 34 (31-36) g/dL RDW 15 (10.5-15) % Plt Count 240 (150-450) 10^3/uL MPV 9.6 (7.4-10.4) fL Neut % (Auto) 70.7 % Lymph % (Auto) 18.5 % Grand % (Auto) 8.1 % Eos % (Auto) 2.0 % Baso % (Auto) 0.7 % Absolute Neuts (auto) 6.1 (1.5-7.7) 10^3/ul Absolute Lymphs (auto) 1.6 (1.0-4.8) 10^3/ul Absolute Monos (auto) 0.7 (0-0.8) 10^3/ul Absolute Eos (auto) 0.2 (0-0.6) 10^3/ul Absolute Basos (auto) 0.1 (0-0.2) 10^3/ul Absolute Nucleated RBC 0.0 10^3/ul Nucleated RBC % 0.1 Urine Color Straw Urine Appearance Clear Urine pH 6.0 (5-9) Ur Specific [place] 1.008 L (1.010-1.030) Urine Protein Negative (Negative) Urine Ketones Negative (Negative) Urine Blood Negative (Negative) Urine Nitrate Negative (Negative) Urine Bilirubin Negative (Negative) Urine Urobilinogen Negative (Negative) Ur Leukocyte Esterase Negative (Negative) Urine Glucose Negative (Negative) Blood Type O Positive Result Diagrams: 02/15/19 15:39 02/15/19 15:39 Lab Statement: Any lab studies that have been ordered have been reviewed, and results considered in the medical decision making process. - Ultrasound No standard instances Ultrasound Interpretation Completed By: Radiologist Summary of Ultrasound Findings: Transvaginal US. 2.3 cm maximum diameter thick walled cystic lesion with peripheral hyperemia is identified either within or immediately adjacent to the RIGHT ovary. Given the clinical context with elevated beta hCG in absence of an IUP this lesion is concerning for ectopic . ED physician has reviewed this report. Re-Evaluation - Re-Evaluation 1st re-eval Re-Evaluation Time: 18:58 Change: Improved Comment: I spoke with the patient again about her results who is stable and agreeable with the plan of discharge. GIGU Course/Dx - Course Course Of Treatment: Pt is a 23 y/o F presenting to the ED sent from Dr. Novak office for possible ectopic . She has had four miscarriages in the last four months and her LNMP was in July of 2018. She has had positive and negative tests recently, and her ultrasounds have not shown anything. She reports slight abd cramping without abdominal pain , constipation, and a stye in her R eye. She denies vaginal bleeding and urinary sx. [id number]. Transvaginal US shows: 2.3 cm maximum diameter thick walled cystic lesion with peripheral hyperemia is identified either within or immediately adjacent to the RIGHT ovary. Given the clinical context with elevated beta hCG in absence of an IUP this lesion is concerning for ectopic . I spoke with Dr. Shay about the US results at 1750, and then I spoke with Dr. Dorantes who states that she is a candidate for methotrexate. Pt will be sent home with a dx of ectopic and she will be following up with Dr. Dorantes this coming 02/18/19. - Diagnoses Provider Diagnoses: Ectopic , Hordeolum of right lower eyelid Discharge - Sign-Out/Discharge Documenting (check all that apply): Patient Departure Patient Received Moderate/Deep Sedation with Procedure: No - Discharge Plan Condition: Stable Disposition: HOME Patient Education Materials: Ectopic (DC) Referrals: Care [facility] [Outside] - If Needed Mehul Dorantes MD [Medical Doctor] - 3 Days Additional Instructions: We spoke with Dr. Dorantes, [facility] specialist. You have been diagnosed with an ectopic (a that is in your ovary instead of your uterus). You were given methotrexate as a shot to try to treat the ectopic . You will need to have definite follow up with Dr. Dorantes in 3 days on 02/18/19 to determine how your treatment is doing. You will need to return to the ER if you have pain or vaginal bleeding or any new or worsening symptoms. - Attestation Statements Document Initiated by Joselitoibe: Yes Documenting Scribe: Sheela Holden Provider For Whom Aundrea is Documenting (Include Credential): Dr. Judy Willis MD. Scribe Attestation: I, Sheela Holedn, scribed for Dr. Judy Willis MD. on 02/15/19 at 1858. Consult Consult: 1750 - I spoke with Dr. Shay who told me the radiology result, then I spoke with Dr. Dorantes who states that she is a candidate for Methotrexate. 1800 - I spoke with JOSHUA Paige, in pharmacy, who assisted in dosing the Methotrexate for the patient.
[2019-02-15] MEDS ORDERED: Methotrexate* 25 MG/ML 2 ML VIAL IM ONE (17:59)
[2019-02-15 18:44] LABS: Albumin 4.5 g/dL (3.2-5.2); Albumin/Globulin Ratio 1.5 (1-3); Total Bilirubin 0.5 mg/dL (0.2-1.0); Total Protein 7.5 g/dL (6.4-8.9)
[2019-02-15 19:23] VITALS: BP 116/76
== END 2019-02-15 19:23 | disposition home or self-care (01) ==
LOC: ED 14:38
DX: O00.90 Unspecified ectopic pregnancy without intrauterine pregnancy (principal); H00.012 Hordeolum externum right lower eyelid; Z88.0 Allergy status to penicillin; F32.9 Major depressive disorder, single episode, unspecified; F41.9 Anxiety disorder, unspecified; K21.9 Gastro-esophageal reflux disease without esophagitis; Z87.891 Personal history of nicotine dependence
CPT/HCPCS: 36415; 76817; 80053; 81003; 84702; 85025; 86900; 86901; 96372; 99283; J9250

== ENCOUNTER 2019-08-09 15:15 | Emergency (ER) | payer MEDICAID ==
--- NOTE | 2019-08-09 16:12 | ED ---
Throat Pain/Nasal Congestion - HPI Summary HPI Summary: Patient is a 23 y/o F presenting to the ED for a chief complaint of ENT problems. Patient admits nonproductive cough, nasal congestion, chest tightness , right ear pain, sore throat, chills, pallor, and generalized body aches. Patient denies fever, nausea, vomiting, diarrhea, hematuria, or dysuria. PMHx is significant for asthma. PSHx is significant for hiatal hernia repair and tonsillectomy. Patient denies tobacco, alcohol, or drug use. Patient is 14 weeks . This is her third . Dr. Dorantes is the patients OB who see saw on 08/09/19. Medications reviewed. Allergies noted. - History of Current Complaint Chief Complaint: EDUpperRespComplaint Time Seen by Provider: 08/09/19 15:53 Hx Obtained From: Patient Onset/Duration: Sudden Onset, Lasting Days, Still Present Severity: Moderate Cough: Nonproductive - Allergies/Home Medications Allergies/Adverse Reactions: Allergies Allergy/AdvReac Type Severity Reaction Status Date / Time Adhesive Tape [Paper Tape] Allergy Rash And Verified 02/15/19 15:19 Itching clindamycin Allergy Rash And Verified 02/15/19 15:19 Itching doxycycline Allergy Hives/Diff. Verified 02/15/19 15:19 Breathing/I tching lamotrigine [From Lamictal] Allergy Rash Verified 02/15/19 15:19 Penicillins Allergy Hives Verified 02/15/19 15:19 trazodone Allergy Agitation Verified 02/15/19 15:19 PMH/Surg Hx/FS Hx/Imm Hx Previously Healthy: Yes Endocrine/Hematology History: Denies: Hx Diabetes, Hx Thyroid Disease Cardiovascular History: Denies: Hx Congestive Heart Failure, Hx Hypercholesterolemia, Hx Hypertension Respiratory History: Reports: Hx Asthma - INHALERS Denies: Hx Chronic Obstructive Pulmonary Disease (COPD) GI History: Reports: Hx Gastroesophageal Reflux Disease - CONTROL WITH MEDS Denies: Hx Ulcer History: Reports: Other Problems/Disorders - FREQUENT YEAST INFECTION - NONE NOW Denies: Hx Kidney Infection, Hx Renal Disease Sensory History: Denies: Hx Contacts or Glasses, Hx Legally Blind, Hx Deafness, Hx Hearing Aid Opthamlomology History: Denies: Hx Contacts or Glasses, Hx Legally Blind EENT History: Denies: Hx Deafness Neurological History: Reports: Hx Migraine - 4 TIMES A DAY, Other Neuro Impairments/Disorders - MOOD SWINGS, ADHD, INSOMNIA Psychiatric History: Reports: Hx Anxiety, Hx Depression, Other Psychiatric Issues/Disorders - ADHD,PTSD - Surgical History Surgical History: Yes Surgery Procedure, Year, and Place: 01/2000 BILATERAL MYRINGOTOMY WITH [place] INSERTION, [facility] [place]. 04/2000 ADENOIDECTOMY AND [place]ONSILLECTOMY, [facility] [place]. umbilical hernia repair Hx Anesthesia Reactions: Yes - TOOK LONGER TO WAKE UP Infectious Disease History: No Infectious Disease History: Denies: Hx Hepatitis, Hx Human Immunodeficiency Virus (HIV), Traveled Outside the in Last 30 Days - Family History Known Family History: Positive: Cardiac Disease, Hypertension, Other - mom ectopic - Social History Occupation: Employed Full-time Lives: With Family Alcohol Use: None Hx Substance Use: No Substance Use Type: Reports: None Hx Tobacco Use: Yes Smoking Status (MU): Former Smoker Type: Cigarettes Amount Used/How Often: 1 PPD Length of Time of Smoking/Using Tobacco: 6 YEARS Have You Smoked in the Last Year: No Review of Systems Positive: Chills, Other - Positive pallor Positive: Sore Throat, Other - Positive right ear pain, nasal congestion Positive: Chest Pain - Chest tightness Positive: Cough - Nonproductive Negative: Vomiting, Diarrhea, Nausea Negative: dysuria, hematuria Positive: Myalgia - Generalzied body aches All Other Systems Reviewed And Are Negative: Yes Physical Exam - Summary Physical Exam Summary: Constitutional: Well-developed, Well-nourished, Alert. (-) Distressed Skin: Warm, Dry HENT: Normocephalic; Atraumatic Eyes: Conjunctiva normal Neck: Musculoskeletal ROM normal neck. (-) JVD, (-) Stridor, (-) Tracheal deviation Cardio: Rhythm regular, rate normal, Heart sounds normal; Intact distal pulses; Radial pulses are 2+ and symmetric. (-) Murmur Pulmonary/Chest wall: Effort normal. (-) Respiratory distress, (-) Wheezes, (-) Rales Abd: Soft, (-) tenderness, (-) Distension, (-) Guarding, (-) Rebound. Gravid uterus. Musculoskeletal: (-) Edema Lymph: (-) Cervical adenopathy Neuro: Alert, Oriented x3 Psych: Mood and affect Normal Triage Information Reviewed: Yes Vital Signs On Initial Exam: Initial Vitals Temp Pulse Resp BP Pulse Ox 98.0 F 90 18 119/79 99 08/09/19 15:19 08/09/19 15:19 08/09/19 15:19 08/09/19 15:19 08/09/19 15:19 Vital Signs Reviewed: Yes Procedures - Sedation Patient Received Moderate/Deep Sedation with Procedure: No Diagnostics - Vital Signs Vital Signs Temp Pulse Resp BP Pulse Ox 08/09/19 15:19 98.0 F 90 18 119/79 99 - Laboratory Lab Statement: Any lab studies that have been ordered have been reviewed, and results considered in the medical decision making process. - Radiology Chest X-ray Radiology Interpretation Completed By: Radiologist Summary of Radiographic Findings: Chest X-ray IMPRESSION: No active cardiopulmonary disease is noted. Reviewed by Dr. Welch. EENT Course/Dx - Course Course Of Treatment: Patient is here with symptoms consistent with a viral syndrome. Patient's overall well-appearing. Given patient's week of symptoms, chest x-ray was performed which showed no pneumonia. Patient is discharged with Tylenol and [facility] [employer] follow-up. - Diagnoses Provider Diagnoses: Viral syndrome, Sore throat, Right ear pain, , Cough Discharge ED - Sign-Out/Discharge Documenting (check all that apply): Patient Departure - Discharge - Discharge Plan Condition: Stable Disposition: HOME Patient Education Materials: Viral Syndrome (ED) Referrals: Care [facility] [Outside] Mehul Dorantes MD [Medical Doctor] - Additional Instructions: Take Tylenol for pain. Follow up with [facility] [employer] [facility] within one week. Use your albuterol inhaler as needed. PLEASE RETURN TO EMERGENCY DEPARTMENT FOR ANY NEW OR WORSENING SYMPTOMS. Please follow up with your primary care physician. Please make all follow-ups in 1-3 days unless I advise you otherwise. - Billing Disposition and Condition Condition: STABLE Disposition: Home - Attestation Statements Document Initiated by Joselitoibyoly: Yes Documenting Scribe: Rosa Maria Back Provider For Whom Aundrea is Documenting (Include Credential): El Welch MD Scribe Attestation: Rosa Maria Cuadra, scribed for El Welch MD on 08/09/19 at 2033. Scribe Documentation Reviewed: Yes Provider Attestation: The documentation as recorded by the Rosa Maria carrillo accurately reflects the service I personally performed and the decisions made by me, El Welch MD Status of Scribe Document: Viewed
[2019-08-09 18:18] VITALS: BP 142/71
== END 2019-08-09 18:05 | disposition home or self-care (01) ==
LOC: ED 15:15
DX: B34.9 Viral infection, unspecified (principal); J02.9 Acute pharyngitis, unspecified; H92.01 Otalgia, right ear; R05 Cough; Z87.891 Personal history of nicotine dependence; Z88.1 Allergy status to other antibiotic agents; Z88.0 Allergy status to penicillin; Z88.8 Allergy status to other drugs, medicaments and biological substances
CPT/HCPCS: 71046; 99282

== ENCOUNTER 2019-09-01 21:48 | Emergency (ER) | payer OTHER, MEDICAID ==
--- NOTE | 2019-09-01 23:03 | ED ---
Throat Pain/Nasal Congestion - HPI Summary HPI Summary: 23 year-old female who is 21 weeks gestation presents to emergency department today complaining of left upper dental pain/left ear pain since 08/25/2019. Patient denies fever, chest pain, bowel movement, urination, rash, difficult to breathing, difficulty swallowing. She endorses 10 out of 10 pain which is made worse with eating and better with [id number] remedies. She states she is taking Tylenol for pain with minimal relief. She states she has made attempts to get into see a dentist with the left. Family and social history are noncontributory. - History of Current Complaint Chief Complaint: EDDentalPain Time Seen by Provider: 09/01/19 23:02 Hx Obtained From: Patient Onset/Duration: Gradual Onset Severity: Severe Associated Signs And Symptoms: Negative: Dysphagia, FB Sensation, Drooling, Wheezing, Hoarseness, Sinus Discomfort, Nasal Discharge - Allergies/Home Medications Allergies/Adverse Reactions: Allergies Allergy/AdvReac Type Severity Reaction Status Date / Time Adhesive Tape [Paper Tape] Allergy Rash And Verified 09/01/19 21:55 Itching clindamycin Allergy Rash And Verified 09/01/19 21:55 Itching doxycycline Allergy Hives/Diff. Verified 09/01/19 21:55 Breathing/I tching lamotrigine [From Lamictal] Allergy Rash Verified 09/01/19 21:55 Penicillins Allergy Hives Verified 09/01/19 21:55 trazodone Allergy Agitation Verified 09/01/19 21:55 PMH/Surg Hx/FS Hx/Imm Hx Endocrine/Hematology History: Denies: Hx Diabetes, Hx Thyroid Disease Cardiovascular History: Denies: Hx Congestive Heart Failure, Hx Hypercholesterolemia, Hx Hypertension Respiratory History: Reports: Hx Asthma - INHALERS Denies: Hx Chronic Obstructive Pulmonary Disease (COPD) GI History: Reports: Hx Gastroesophageal Reflux Disease - CONTROL WITH MEDS Denies: Hx Ulcer History: Reports: Other Problems/Disorders - FREQUENT YEAST INFECTION - NONE NOW Denies: Hx Kidney Infection, Hx Renal Disease Sensory History: Denies: Hx Contacts or Glasses, Hx Legally Blind, Hx Deafness, Hx Hearing Aid Opthamlomology History: Denies: Hx Contacts or Glasses, Hx Legally Blind Neurological History: Reports: Hx Migraine - 4 TIMES A DAY, Other Neuro Impairments/Disorders - MOOD SWINGS, ADHD, INSOMNIA Psychiatric History: Reports: Hx Anxiety, Hx Depression, Other Psychiatric Issues/Disorders - ADHD,PTSD - Surgical History Surgery Procedure, Year, and Place: 01/2000 [place]IL[place] [facility] [place] [facility] [place] [facility] [place] [place] Hx Anesthesia Reactions: Yes - TOOK LONGER TO WAKE UP Infectious Disease History: No Infectious Disease History: Denies: Hx Hepatitis, Hx Human Immunodeficiency Virus (HIV), Traveled Outside the [place] in Last 30 Days - Family History Known Family History: Positive: Cardiac Disease, Hypertension, Other - mom ectopic - Social History Alcohol Use: None Hx Substance Use: No Substance Use Type: Reports: None Hx Tobacco Use: Yes Smoking Status (MU): Former Smoker Type: Cigarettes Amount Used/How Often: 1 PPD Length of Time of Smoking/Using Tobacco: 6 YEARS Have You Smoked in the Last Year: No Review of Systems Constitutional: Negative Eyes: Negative ENT: Negative Cardiovascular: Negative Respiratory: Negative Gastrointestinal: Negative Genitourinary: Negative Musculoskeletal: Negative Skin: Negative Neurological: Negative Psychological: Normal All Other Systems Reviewed And Are Negative: Yes Physical Exam Triage Information Reviewed: Yes Vital Signs On Initial Exam: Initial Vitals Temp Pulse Resp BP Pulse Ox 97.8 F 76 16 123/70 99 09/01/19 21:50 09/01/19 21:50 09/01/19 21:50 09/01/19 21:50 09/01/19 21:50 Vital Signs Reviewed: Yes Appearance: Positive: Well-Appearing, No Pain Distress, Well-Nourished Skin: Positive: Warm, Skin Color Reflects Adequate Perfusion Eyes: Positive: EOMI, GRAEME ENT: Positive: Pharynx normal Dental: Positive: Other - Dentition is in poor repair throughout. Evidence of dental caries noted at the site of pain in the upper left near the 13th tooth. No evidence of abscess however there is erythema suggestive of infection. Neck: Positive: Nontender Respiratory/Lung Sounds: Positive: Clear to Auscultation, Breath Sounds Present Cardiovascular: Positive: RRR, S1, S2 Abdomen Description: Positive: Nontender Bowel Sounds: Positive: Present Musculoskeletal: Positive: Strength/ROM Intact Neurological: Positive: Sensory/Motor Intact, Alert, Oriented to Person Place, Time, Normal Gait, Speech Normal Psychiatric: Positive: Normal AVPU Assessment: Alert Procedures - Sedation Patient Received Moderate/Deep Sedation with Procedure: No Diagnostics - Vital Signs Vital Signs Temp Pulse Resp BP Pulse Ox 09/01/19 21:50 97.8 F 76 16 123/70 99 - Laboratory Lab Statement: Any lab studies that have been ordered have been reviewed, and results considered in the medical decision making process. EENT Course/Dx - Course Course Of Treatment: No dental abscess or lesions seen over area of concern. Erythema at the site of pain. No drainage from area. Several dental caries, cavities, crowding and broken teeth throughout. Pain on palpation over mandible. No TMJ tenderness. No pain with opening and closing mouth. Poor dental hygiene and outpatient dental care. Will treat for possible dental infection/abscess based on symptoms of pain and radiation to jaw and ear. Patient reports hives with clindamycin, doxycycline, penicillin.. Will treat with Augmentin and Benadryl to counteract rash as patient states her reaction to Augmentin as "minor".. Patient to follow up immediately with dentist. - Differential Diagnoses Differential Diagnoses: Dental Abscess, Dental Caries, Periodontic Abscess, Periodontic Disease - Diagnoses Provider Diagnoses: Dental abscess Discharge ED - Sign-Out/Discharge Documenting (check all that apply): Patient Departure - Discharge Plan Condition: Stable Disposition: HOME Prescriptions: Amoxicillin/Clavulanate TAB* [Augmentin TAB 875*] 875 mg PO BID 7 Days #14 tab Patient Education Materials: Dental Abscess (ED) Referrals: [facility] [Outside] - 3 Days No Primary Care Phys,NOPCP [Primary Care Provider] - Additional Instructions: You have been diagnosed with dental pain with possible infection: Antibiotics as prescribed to you. Augmentin times daily for 7 days. Please take Benadryl with this for allergic reaction. To minimize the potential for gastrointestinal intolerance, Penicillin should be taken at the start of a meal. If you have any questions about your medication, please contact us or ask your pharmacist. Salt water rinses several times per day will improve healing time. Tylenol 650mg three times daily for pain Use these medications intermittently Follow up with a dentist for routine care to prevent recurrence of infections. If fever, worsening pain or swelling develops, see your PCP, dentist or come back to the Emergency Department. - Billing Disposition and Condition Condition: STABLE Disposition: Home
[2019-09-01] MEDS: diPHENhydraMINE PO* 25 MG PO ONE (23:57)
[2019-09-01] MEDS: Amoxicillin/Clavulanate TAB* 875 MG PO ONE (23:57)
[2019-09-01] MEDS: Lidocaine 2% VISCOUS* 15 ML UDC SWISH SPIT ONE (23:57)
[2019-09-02 00:09] VITALS: BP 115/53
== END 2019-09-02 00:08 | disposition home or self-care (01) ==
LOC: ED 21:48
DX: K04.7 Periapical abscess without sinus (principal); J45.909 Unspecified asthma, uncomplicated; K21.9 Gastro-esophageal reflux disease without esophagitis; F41.9 Anxiety disorder, unspecified; F32.9 Major depressive disorder, single episode, unspecified; Z87.891 Personal history of nicotine dependence; Z88.0 Allergy status to penicillin; Z88.1 Allergy status to other antibiotic agents; Z88.8 Allergy status to other drugs, medicaments and biological substances
CPT/HCPCS: 99282; A9270-GY

== ENCOUNTER 2019-09-21 22:43 | Emergency (ER) | payer OTHER, MEDICAID ==
--- OUTSIDE RECORDS SUMMARY | 2019-09-21 23:17 | XMS REPORT ---
:1995 Author Organization [facility] Team Providers Name Role Phone SHANNA POLLARD Primary Care Physician Unavailable Allergies, Adverse Reactions, Alerts Allergy Code CodeSystem Reaction Severity Criticality Status Start Substance Date trazodone night Moderate Active terrors lamotrigine Rash Moderate Active 2018-09 Medications Medication Medication Medication Start Stop Route Dose Status Fill Code CodeSystem Date Date Instructions dextroamphetam 167773 RxNorm 2019- oral 30 mg completed for 30 ine-amphetamin 5-29 -28 capsule, day(s) e extended release 24hr aripiprazole 553377 RxNorm 2019- oral 2 mg 1 completed Take 1 tablet 4 05-02 tablet once a day once a for 30 day(s) day AMPHETAMINE/DE RxNorm active for 14 XTROAMPHETAMIN 3-07 day(s) E 30 MG CP24 escitalopram 122334 RxNorm 2019- oral 20 mg 1 active Take 1 tablet oxalate 06-10 12-26 tablet once a day once a for 30 day(s) day GABAPENTIN 100 RxNorm active for 30 MG CAPS 3-07 day(s) ESCITALOPRAM RxNorm active for 30 OXALATE 20 MG 3-07 day(s) TABS dextroamphetam 020237 RxNorm 2019- oral 30 mg completed for 30 ine-amphetamin 7-29 09-27 capsule, day(s) e extended release 24hr dextroamphetam 083874 RxNorm 2018-09 2019- oral 30 mg 1 completed 1 capsule ine-amphetamin 0-30 -29 capsule, once a day e extended for 30 day(s) release 24hr once a day aripiprazole 019869 RxNorm 2019- oral 2 mg completed for 30 06-28 tablet day(s) gabapentin 475741 RxNorm 2019- oral 100 mg completed for 30 01-07 capsule day(s) clonidine HCl 138650 RxNorm 2018- oral 0.1 mg 1 completed Take 1 tablet 05-10 tablet once a day once a for 30 day(s) day PNV RxNorm 2018-09 oral 28 mg active Take 1 tablet cmb#95-ferrous 2 iron- by mouth once fumarate-FA 800 mcg a day as 1 tablet directed once a day escitalopram 890761 RxNorm 2019- oral 20 mg 1 completed Take 1 tablet oxalate 01-07 tablet once a day once a for 30 day(s) day ARIPIPRAZOLE 2 RxNorm active for 30 MG TABS 3- day(s) dextroamphetam 790074 RxNorm 2018- oral 30 mg completed for 30 ine-amphetamin 01-07 capsule, day(s) e extended release 24hr gabapentin 164245 RxNorm 2018- oral 100 mg completed for 30 01-07 capsule day(s) escitalopram 230518 RxNorm 2019- oral 20 mg completed for 30 oxalate 04-05 tablet day(s) dextroamphetam 898158 RxNorm 2019- oral 30 mg 1 completed Take 1 ine-amphetamin 06-10 capsule, capsule e extended every morning release for 30 24hr day(s) every morning dextroamphetam 687750 RxNorm 2019- oral 30 mg 1 completed Take 1 ine-amphetamin 04-11 capsule, capsule e extended every morning release for 30 24hr day(s) every morning gabapentin 285190 RxNorm 2019- oral 100 mg 2 completed 2 capsule 04-05 capsule twice a day twice a as needed for day 30 day(s) gabapentin 861051 RxNorm 2019- oral 100 mg 2 active 2 capsule 06-10 capsule twice a day twice a as needed for day 30 day(s) aripiprazole 879855 RxNorm 2019- oral 5 mg completed for 30 03-11 tablet day(s) Problems Problem Name Code CodeSystem Alternate Alternate Start End Status Narrative Code CodeSystem Date Date 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, 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, 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 Post-traumati 85888753 SNOMED-CT 2018- Active c stress 3-22 disorder, unspecified Hyperkinetic 26469979 SNOMED-CT Active disorder, - unspecified Relevant diagnostic tests/laboratory data Narrative No Information Procedures Procedure Code CodeSystem Target Date of Status Service Device Device Device Name Site Procedure Delivery Code Name UID Location Psychotherap 305800 SNOMED-CT () 2019-06-01 complete Mental y, 45 04 d Health- minutes with [facility] patient [address], [id number] Psychotherap [id number] SNOMED-CT () 2019-07-12 complete Mental y, 45 04 d Health- minutes with [place] patient [address], [id number] Office [place] [id number] SNOMED-CT () 2018-12-14 complete Mental other 7 d Health- outpatient [place] visit for [address] established [id number] patient, [phone] which requires at least 2 of these 3 ku components: An expanded problem focused history; An expanded problem focused examination; Medical decision making of low Office or 707309 SNOMED-CT () 2019-03-11 complete Mental other 7 d Health- outpatient [place] visit for [address] [id number] patient, [phone] which requires at least 2 of these 3 ku components: An expanded problem focused history; An expanded problem focused examination; Medical decision making of low Office or [id number] SNOMED-CT () 2019-04-05 complete Mental other 7 d Health- outpatient [place] visit for [address], established [id number] patient, [phone] which requires at least 2 of these 3 ku components: An expanded problem focused history; An expanded problem focused examination; Medical decision making of low Office or 014083 SNOMED-CT () 2019-05-23 complete Mental other 7 d Health- outpatient [place] visit for [address], management [place], of an [place], established [id number] patient, [phone] which requires at least 2 of these 3 ku components: An expanded problem focused history; An expanded problem focused examination; Medical decision making of low SNOMED-CT () 2019-06-28 complete Mental d [address], [phone] [id number] SNOMED-CT () 2019-08-17 complete Public d [address], [id number] Encounters/Encounter Diagnoses Encounter Encounter Diagnosis Diagnosis Diagnosis Date of Service Name Code Code Name CodeSystem Diagnosis Delivery Location Nursing T1030 SNOMED-CT 2019-08-17 [facility] [place] [facility] [address] [place] [address], [id number] Vital Signs No Information Social History Element Description Description Start End Code CodeSystem AdditionalInfo Date Date SexAssignedAtBirth Female F AdministrativeGender 11-23 Hospital Discharge Instructions Reason For Referral Medical Equipment FDA Assessments
--- NOTE | 2019-09-22 02:44 | ED ---
Complex/Multi-Sys Presentation - HPI Summary HPI Summary: Patient is a 23 y/o F who is 24 weeks and 6 days presents to [facility] with chief complaint of diarrhea. She states that around two weeks ago, she had onset of cough, congestion and toothache. 1.5 weeks ago, she had onset of diarrhea. Patient states that she was evaluated for her toothache and was prescribed Augmentin. She states that she took six doses of this antibiotic. However, at one point when taking it, she developed hives. Patient took Benadryl without relief in Sx. As her tooth was feeling better at this point, she discontinued taking her prescribed antibiotic. However, she notes that cough , congestion, and diarrhea are still present. She is most concerned about her diarrhea. Diarrhea has worsened and episodes more frequent recently. She states that Sx were improved on 09/21/19 until around 1500, at which point she had onset of multiple episodes of diarrhea. She claims that she has had 8-9 episodes since she has been in the ED. Diarrhea is aggravated by food. Abdominal pain, N/ V, fever, vaginal discharge and bleeding are denied. Hx of umbilical hernia repair noted. Dr. Dorantes is OB. She is . Home medications and allergies are reviewed. - History Of Current Complaint Chief Complaint: EDNauseaVomitDiarrh Time Seen by Provider: 09/22/19 02:04 Hx Obtained From: Patient Onset/Duration: Lasting Weeks, Still Present Timing: Weeks Severity Currently: None - dental pain is resolved Aggravating Factor(s): food Associated Signs And Symptoms: Positive: Cough, Diarrhea, Other - positive - congestion; negative - vaginal discharge, vaginal bleeding. Negative: Nausea, Vomiting, Abdominal Pain, Fever - Allergies/Home Medications Allergies/Adverse Reactions: Allergies Allergy/AdvReac Type Severity Reaction Status Date / Time Adhesive Tape [Paper Tape] Allergy Rash And Verified 09/21/19 23:10 Itching clindamycin Allergy Rash And Verified 09/21/19 23:10 Itching doxycycline Allergy Hives/Diff. Verified 09/21/19 23:10 Breathing/I tching lamotrigine [From Lamictal] Allergy Rash Verified 09/21/19 23:10 Penicillins Allergy Hives Verified 09/21/19 23:10 trazodone Allergy Agitation Verified 09/21/19 23:10 PMH/Surg Hx/FS Hx/Imm Hx Endocrine/Hematology History: Denies: Hx Diabetes, Hx Thyroid Disease Cardiovascular History: Denies: Hx Congestive Heart Failure, Hx Hypercholesterolemia, Hx Hypertension Respiratory History: Reports: Hx Asthma - INHALERS Denies: Hx Chronic Obstructive Pulmonary Disease (COPD) GI History: Reports: Hx Gastroesophageal Reflux Disease - CONTROL WITH MEDS Denies: Hx Ulcer History: Reports: Other Problems/Disorders - FREQUENT YEAST INFECTION - NONE NOW Denies: Hx Kidney Infection, Hx Renal Disease Sensory History: Denies: Hx Contacts or Glasses, Hx Legally Blind, Hx Deafness, Hx Hearing Aid Opthamlomology History: Denies: Hx Contacts or Glasses, Hx Legally Blind Neurological History: Reports: Hx Migraine - 4 TIMES A DAY, Other Neuro Impairments/Disorders - MOOD SWINGS, ADHD, INSOMNIA Psychiatric History: Reports: Hx Anxiety, Hx Depression, Other Psychiatric Issues/Disorders - ADHD,PTSD - Surgical History Surgery Procedure, Year, and Place: 01/2000 BILATERAL MYRINGOTOMY WITH TUBE INSERTION, [facility] [place]. 04/2000 ADENOIDECTOMY AND TONSILLECTOMY, [facility] [place]. umbilical hernia repair Hx Anesthesia Reactions: Yes - TOOK LONGER TO WAKE UP Infectious Disease History: No Infectious Disease History: Denies: Hx Hepatitis, Hx Human Immunodeficiency Virus (HIV), Traveled Outside the [place] in Last 30 Days - Family History Known Family History: Positive: Cardiac Disease, Hypertension, Other - mom ectopic - Social History Alcohol Use: None Hx Substance Use: No Substance Use Type: Reports: None Hx Tobacco Use: Yes Smoking Status (MU): Former Smoker Type: Cigarettes Amount Used/How Often: 1 PPD Length of Time of Smoking/Using Tobacco: 6 YEARS Have You Smoked in the Last Year: No Review of Systems - ROS Summary Review of Systems Summary: Home Medications Medication Instructions Recorded Confirmed Type Albuterol HFA INHALER* [Ventolin 2 puff INH Q4H PRN #1 mdi 09/09/18 02/15/19 Rx HFA Inhaler*] Erythromycin OPHTH.OINT* [Ilotycin 1 applic RIGHT EYE TID #1 02/15/19 Rx OPHTH.OINT*] ophth.oint Amoxicillin/Clavulanate TAB* 875 mg PO BID 7 Days #14 tab 09/01/19 Rx [Augmentin TAB 875*] diPHENhydraMINE PO* [Benadryl PO 25 mg PO BID #14 tab 09/01/19 Rx 25 MG TAB*] Negative: Fever Positive: Dental Pain - since resolved Respiratory: Other - positive - congestion Positive: Cough Positive: Diarrhea. Negative: Abdominal Pain, Vomiting, Nausea Genitourinary: Other - negative - vaginal bleeding Negative: discharge - vaginal All Other Systems Reviewed And Are Negative: Yes Physical Exam - Summary Physical Exam Summary: General: Well-developed, Well-nourished female. No acute distress. HEENT: Normocephalic, Atraumatic. Eyes: Conjuctiva normal, PERRL. Oropharynx: Clear, mucous membranes moist, (-) exudates. Neck: Soft, FROM, (-) lymphadenopathy, (-) thyromegaly, (-) JVD. Cardiovascular: Normal sinus rhythm, (-) murmur. Lungs: Clear to auscultation bilaterally (-) wheezes, (-) rales, (-) rhonchi. Abdomen: Gravid female with fundus 2 finger breadths above the umbilicus; Soft, non-tender, non-distended, (-) organomegaly, normal bowel sounds. Back: (-) CVA tenderness Extremities: No edema. Skin: Warm, dry, (-) rash. Neuro: Alert and oriented x3, no focal deficits. Psychiatric: Mood normal, affect normal. Triage Information Reviewed: Yes Vital Signs On Initial Exam: Initial Vitals Temp Pulse Resp BP Pulse Ox 98.6 F 84 16 120/81 98 09/21/19 23:00 09/21/19 23:00 09/21/19 23:00 09/21/19 23:00 09/21/19 23:00 Vital Signs Reviewed: Yes Procedures - Sedation Patient Received Moderate/Deep Sedation with Procedure: No - Ultrasound BEDSIDE US Ultrasound: normal - normal US, HR of 140s Diagnostics - Vital Signs Vital Signs Temp Pulse Resp BP Pulse Ox 09/22/19 01:10 98.1 F 72 16 110/59 99 09/21/19 23:00 98.6 F 84 16 120/81 98 - Laboratory Lab Statement: Any lab studies that have been ordered have been reviewed, and results considered in the medical decision making process. - Ultrasound BEDSIDE US Ultrasound Interpretation Completed By: ED Physician Summary of Ultrasound Findings: normal US, HR of 140s Re-Evaluation - Re-Evaluation First Eval Re-Evaluation Time: 02:53 Comment: Bedside US done. Second Eval Re-Evaluation Time: 03:36 Comment: Patient has been unable to have additional BM in ED. She will be discharged to home, collect stool samples at home, and return them to the lab. She is agreeable with this plan. Complex Multi-Symp Course/Dx Course Of Treatment: 23 year old female at 25 weeks gestation presents with diarrhea for ten days. states she has followed the Adteractive wihtout relief. has had mulitple episodes of diarrhea since presenting to the ED. denies any blood, no black tarry stools. no vomiting. no f/c. had cold symptoms prior to the diarrhea. was put on augmentin. took 6 tablets. then had rash and stopped antibiotic. then diarrhea started. exam WNL. patient unable to give stool sample. discharged home wiht materials to collect stool for c diff at home. follow up with PCP, follow up sooner for any worsening symptoms. - Diagnoses Provider Diagnoses: Diarrhea, Discharge ED - Sign-Out/Discharge Documenting (check all that apply): Patient Departure - discharge - Discharge Plan Condition: Stable Disposition: HOME Patient Education Materials: (ED), Acute Diarrhea (ED) Referrals: [facility] [Outside] - 3 Days Additional Instructions: PLEASE RETURN TO ED FOR ANY NEW OR WORSENING SYMPTOMS. PLEASE FOLLOW UP WITH YOUR PRIMARY CARE PHYSICIAN WITHIN THREE DAYS. - Billing Disposition and Condition Condition: STABLE Disposition: Home - Attestation Statements Document Initiated by Aundrea: Yes Documenting Scribe: LINDSEY HOLGUIN Provider For Whom Aundrea is Documenting (Include Credential): MARY ZAMORANO MD Scribe Attestation: LINDSEY Cuadra, scribed for MARY ZAMORANO MD on 09/22/19 at 0458. Scribe Documentation Reviewed: Yes Provider Attestation: The documentation as recorded by the LINDSEY carrillo accurately reflects the service I personally performed and the decisions made by me, MARY ZAMORANO MD Status of Scribe Document: Viewed
[2019-09-22 04:10] VITALS: BP 109/69
== END 2019-09-22 03:50 | disposition home or self-care (01) ==
LOC: ED 22:43
DX: O26.892 Other specified pregnancy related conditions, second trimester (principal); R19.7 Diarrhea, unspecified; Z3A.25 25 weeks gestation of pregnancy; K21.9 Gastro-esophageal reflux disease without esophagitis; F41.9 Anxiety disorder, unspecified; F32.9 Major depressive disorder, single episode, unspecified; Z87.891 Personal history of nicotine dependence; Z79.899 Other long term (current) drug therapy; Z88.0 Allergy status to penicillin; Z88.1 Allergy status to other antibiotic agents; Z88.8 Allergy status to other drugs, medicaments and biological substances
CPT/HCPCS: 99282

== ENCOUNTER 2019-12-30 14:21 | Inpatient (IN) | payer OTHER, MEDICAID ==
[2019-12-30] MEDS ORDERED: Buffered Lidocaine 1% SYRIN* 1 ML/SYRINGE INTRADERM ONE (16:53)
[2019-12-30] MEDS ORDERED: Lactated Ringers 1000 ML Bag* 1,000 ML IV ONE (16:53)
[2019-12-30] MEDS ORDERED: Lactated Ringers 1000 ML Bag* 1,000 ML IV SCH ×2 (17:00→23:45)
--- NOTE | 2019-12-30 17:02 | HP ---
General Information - Reason for Visit at 38 6/7 weeks in labor. - General Information Maternal Age: 24 Grav: 6 Para: 4 SAB: 1 IEA: 0 Estimated Due Date: 01/07/20 Determined By: Early Ultrasound Gestational Age in Weeks/Days: 38 6/7 Maternal Blood Type and Rh: O Positive - Results this Serology/RPR Result: Non-Reactive Rubella Result: Immune HBsAg Result: Negative HIV Result: Negative GBS Culture Result: Negative Past Medical History Delivery History: See Records Pertinent Past Medical History: See Records Past Medical History Comment: Asthma PTSD ADHD Depression Anxiety/Panic attacks Pertinent Past Surgical History: See Records Past Surgical History Comment: Umnilical hernia repair Tonsils/Adenoids Pertinent Family History: See Records - Antepartal Records Antepartal Records: Reviewed, Complicated by: - Fetus with 2 vessel cord, Late care. Review of Systems Constitutional: Uncomfortable CV Complaint: No Respiratory: Shortness of Breath: No Gastrointestinal: No Nausea/Vomiting, Normal Bowel Movement Genitourinary: No Dysuria, No Bleeding, No Leaking Fluid Musculoskeletal: No Epigastric Pain, Contractions Neurological: No Headache, No Visual Changes Movement: Normal Exam Allergies/Adverse Reactions: Allergies Adhesive Tape [Paper Tape] Allergy (Verified 09/21/19 23:10) Rash And Itching clindamycin Allergy (Verified 09/21/19 23:10) Rash And Itching doxycycline Allergy (Verified 09/21/19 23:10) Hives/Diff.Breathing/Itching lamotrigine [From Lamictal] Allergy (Verified 09/21/19 23:10) Rash Penicillins Allergy (Verified 09/21/19 23:10) Hives trazodone Allergy (Verified 09/21/19 23:10) Agitation Temp 98.0 BP 116/74 P 83 RR 16 - Measurements Height: 5 ft 5 in Weight: 162 lb Weight in lbs: 162.774469 Body Mass Index (BMI): 26.9 Pre- Weight: 135 lb Weight Gained This : 27 lbs and 0 ozs - Exam Breast: Breast Exam Deferred CVA: No CVA Tenderness Extremities: No Edema Heart: Normal Rhythm/Heart Sounds HEENT: No Significant Findings Lungs: Clear Bilaterally Rectal: Rectal Exam Deferred Reflexes: DTR 2+ Thyroid: No Thyromegaly - Abdominal Exam Abdomen Exam: Non-Tender, Fundal Height Consistent with Dates - Ultrasound/Biophysical Profile Ultrasound Status: Not Done Biophysical Profile: Normal Reactive NST Targeted Exam Findings See L&D Outpatient Visit Provider Note for Findings: N/A Cervical Exam: 6cm Effacement: 80% Station: -1 Presenting Part: Vertex Membrane Status: Intact Bleeding/Discharge: None EFM Findings - External Monitor Findings Baseline Heart Rate: 130 External Monitor Findings: Accelerations Present, No Pattern of Variable or Late Decelerations Contractions: Irregular, Moderate - Back labor. Assessment/Plan - Assessment in labor with advanced cervical dilation. - Plan Plan: Admit - Anticipate Vaginal Delivery - Date/Time of Admission Date of Admission: 12/30/19 Time of Admission: 17:00
[2019-12-30 19:35] LABS: ABS Basophils 0.1 10^3/ul (0-0.2); ABS Eosinophils 0.1 10^3/ul (0-0.6); ABS Lymphocytes 1.4 10^3/ul (1.0-4.8); ABS Monocytes 0.7 10^3/ul (0-0.8); ABS Neutrophils 7.3 10^3/ul (1.5-7.7); Eosinophil % 0.9 %; Hematocrit 36 % (35-47); Hemoglobin 12.5 g/dL (12.0-16.0); Lymphocyte % 14.3 %; Mean Corpuscular HGB Conc 35 g/dL (31-36); Mean Corpuscular Hemoglobin 27 pg (27-31); Mean Corpuscular Volume 76 fL (80-97); Mean Platelet Volume 10.5 fL (7.4-10.4); Platelet Count 195 10^3/uL (150-450); Red Blood Count 4.66 10^6 /uL (3.70-4.87); Red Cell Distribution Width 14 % (10-15); White Blood Count 9.5 10^3/uL (3.5-10.8)
[2019-12-30 19:55] LABS: Urine Benzodiazepine Screen None Detected (None Detect); Urine Opiates Screen None Detected (None Detect)
[2019-12-30] MEDS ORDERED: Oxytocin in LR* 20 UNITS/1,000 ML BAG IVPB ONE (20:39)
[2019-12-30] MEDS ORDERED: Acetaminophen TAB* 325 MG PO PRN (23:02)
[2019-12-30] MEDS ORDERED: Dibucaine 1% 28.35 GM TUBE PR PRN (23:02)
[2019-12-30] MEDS ORDERED: Witch Hazel PAD* JAR TOPICAL PRN (23:02)
[2019-12-30] MEDS ORDERED: Glycerin ADULT SUPP PR PRN (23:02)
[2019-12-31] MEDS: Ibuprofen TAB* 600 MG PO PRN ×3 (00:31→20:35)
--- NOTE | 2019-12-31 02:35 | PROCNOTE ---
[facility] OB: Delivery Note - Delivery A Date of : 12/30/19 Time of : 22:50 Sex: Female Weight at : 7 lb 9 oz Score 1 Minute: 9 Score 5 Minutes: 9 Gestational Age in Weeks and Days at Delivery: 38 Weeks and 6 Days Delivery Method: Spontaneous Vaginal Labor: Spontaneous Did Patient attempt ?: N/A, No Previous Amniotic Fluid: Clear Estimated Blood Loss: 200 Anesthesia/Analgesia: None Delivered By: Mehul Dorantes - Nursery Level of Nursery: Regular/Bedside - Perineum Perineal Injury: None/Intact - Events Delivery Events of Note: Pitocin Only After Delivery
[2019-12-31 07:16] LABS: ABS Eosinophils 0.1 10^3/ul (0-0.6); ABS Lymphocytes 1.7 10^3/ul (1.0-4.8); ABS Monocytes 1.3 10^3/ul (0-0.8); ABS Neutrophils 9.3 10^3/ul (1.5-7.7); Eosinophil % 0.8 %; Hematocrit 36 % (35-47); Hemoglobin 11.9 g/dL (12.0-16.0); Lymphocyte % 13.4 %; Mean Corpuscular HGB Conc 33 g/dL (31-36); Mean Corpuscular Hemoglobin 26 pg (27-31); Mean Corpuscular Volume 79 fL (80-97); Mean Platelet Volume 10.4 fL (7.4-10.4); Platelet Count 169 10^3/uL (150-450); Red Blood Count 4.52 10^6 /uL (3.70-4.87); Red Cell Distribution Width 14 % (10-15); White Blood Count 12.4 10^3/uL (3.5-10.8)
[2019-12-31] MEDS ORDERED: Simethicone TAB* 80 MG TAB.CHEW PO SCH (08:30)
[2019-12-31] MEDS ORDERED: Tetan/Diph/Pertus SYR(Tdap)* 0.5 ML SYR(BOOSTRIX) use SYR contains LATEX IM ONE (09:00)
[2019-12-31] MEDS ORDERED: Influenza VAC *QUAD* 2019-20* 0.5 ML SYRINGE IM ONE (09:00)
[2019-12-31] MEDS ORDERED: Ferrous Gluconate TAB* 324 MG TAB PO SCH (09:00)
[2019-12-31] MEDS: Docusate CAP* 100 MG PO SCH ×3 (11:56→20:35)
[2020-01-01 07:44] VITALS: BP 112/64
[2020-01-01] MEDS ORDERED: Varicella Virus Vaccine Live* 0.5 ML VIAL SUBCUT ONE (09:00)
[2020-01-01] MEDS: Docusate CAP* 100 MG PO SCH (10:21)
[2020-01-01] MEDS: Ibuprofen TAB* 600 MG PO PRN (10:44)
== END 2020-01-01 12:24 | disposition home or self-care (01) | DRG 807 ==
LOC: MCHOBOUT 14:21 → MCHOB 16:24
PROVIDERS: ADMIT Obstetrics & Gynecology; ATTEND Obstetrics & Gynecology
PROC: 10E0XZZ Delivery of Products of Conception, External Approach (ICD-10-PCS; principal; 2019-12-30)
PROC: 10907ZC Drainage of Amniotic Fluid, Therapeutic from Products of Conception, Via Natural or Artificial Opening (ICD-10-PCS; 2019-12-30)
DX: O99.344 Other mental disorders complicating childbirth (principal); Z37.0 Single live birth; F41.0 Panic disorder [episodic paroxysmal anxiety]; O69.89X0 Labor and delivery complicated by other cord complications, not applicable or unspecified; O99.52 Diseases of the respiratory system complicating childbirth; J45.909 Unspecified asthma, uncomplicated; F43.10 Post-traumatic stress disorder, unspecified; F90.9 Attention-deficit hyperactivity disorder, unspecified type; F32.9 Major depressive disorder, single episode, unspecified; Z3A.38 38 weeks gestation of pregnancy
CPT/HCPCS: 36415; 80307; 85025; 86850; 86900; 86901; 90686; 90715; A9270-GY; G0480